=== PATIENT | female | born 1995 | race Caucasian/White ===

== ENCOUNTER 2020-02-01 20:20 | Observation (INO) | payer MEDICAID, SELFPAY ==
--- NOTE | 2020-02-01 | SCC_ITS ---
Procedure Done: Irrigation and debridement with laceration repair right lower extremity 6 seconds of fluoroscopic guidance, for a cumulative dose of 0.1 mGy, was provided to Dr. Ortez by the radiology department. C-arm images of the RIGHT were saved for the patient's permanent record. HILDA
[2020-02-01 20:24] VITALS: BP 179/115; PULSE 70; RESP 16; TEMP 36.7; O2SAT 99; BMI 18.3
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
[2020-02-01 20:36] VITALS: PULSE 70
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
[2020-02-01] MEDS: ondansetron 2 mg/ML SDV 2 mL 4 MG IVP (20:53)
[2020-02-01] MEDS: lactated ringers 1,000 ML 999 ML IV (20:53)
[2020-02-01 20:54] VITALS: RESP 18; O2SAT 99
[2020-02-01] MEDS: HYDROmorphone 1 mg/mL INJ 1 mL 0.5 MG IVP (20:54)
[2020-02-01 20:57] VITALS: BP 148/92; PULSE 67; RESP 18; O2SAT 99
[2020-02-01 21:25] LABS: Basophils % 0.2 %; Eosinophils % 0.1 %; Hematocrit 36.2 % (37.0-47.0); Hemoglobin 10.5 g/dL (11.5-15.3); Lymphocytes # 1.9 10^3/uL (0.8-4.8); Lymphocytes % 19.4 %; Mean Corpuscular Hemoglobin 24.2 pg (28.0-34.0); Mean Corpuscular Volume 83.4 fL (81-99); Mean Platelet Volume 10.8 fL (7.4-10.4); Monocytes # 0.6 10^3/uL (0.2-0.9); Monocytes % 6.1 %; Neutrophils # 7.1 10^3/uL (1.8-7.7); Nucleated Red Blood Cells % 0 %; Platelet Count 228 10^3/cmm (130-400); Red Blood Count 4.34 10^6/uL (4.1-5.3); Red Cell Distribution Width 17.3 % (12.1-15.1); White Blood Count 9.6 10^3/uL (4.0-10.0)
[2020-02-01 21:40] LABS: Alanine Aminotransferase 15 U/L (0-33); Albumin Level 3.8 g/dL (3.5-5.2); Alkaline Phosphatase 45 IU/L (35-105); Anion Gap 15.9 (5-19); Aspartate Amino Transferase 19 U/L (0-32); Blood Urea Nitrogen 8 mg/dL (6-20); Calcium 8.9 mg/dL (8.5-10.5); Carbon Dioxide 20 mmol/L (22-29); Chloride 111 mmol/L (98-107); Globulin 2.4 g/dL (1.3-4.6); Glomerular Filtration Rate 102.8 mL/min (90-130); Glucose 85 mg/dL (65-115); Osmolality Calculated 291 mOsm/kg (285-295); Potassium 3.9 mmol/L (3.5-5.1); Sodium 143 mmol/L (136-145); Total Bilirubin 0.2 mg/dL (0.15-1.2); Total Protein 6.2 g/dL (6.6-8.7)
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
--- NOTE | 2020-02-01 22:01 | P.HPUD_ITS ---
Surgery/Procedure H&P Update DATE OF PROCEDURE: February 01, 2020 DATE H&P PERFORMED: 02/01/20 H&P UPDATE INFORMATION: I have reviewed H&P completed within last 30 days, I have examined patient prior to procedure, No changes to prior documentation and H&P is in [facility] EMR on date indicated PLANNED PROCEDURE: Operation Date: 02/01/20 21:55 Proposed Procedures p Debridement(Right) - Luther Ortez DPM
[2020-02-01 22:13] LABS: HCG, Serum Qual Negative (Negative)
[2020-02-01 22:21] LABS: INR 1.18 (0.8-1.2)
[2020-02-01 22:23] LABS: Partial Thromboplastin Time 26.9 SECONDS (23.9-36.7)
--- NOTE | 2020-02-01 22:34 | ANES.PREANE2 ---
Pre-Anesthetic Assessment Pre-Anesthetic Assessment: Height/Weight: Height 1.65 m Weight 49.895 kg Temp Pulse Resp BP Pulse Ox 98.0 F 67 18 148/92 99 02/01/20 20:24 02/01/20 20:57 02/01/20 20:57 02/01/20 20:57 02/01/20 20:57 Proposed Procedure: Operation Date: 02/01/20 21:55 Proposed Procedures p Debridement(Right) - Luther Ortez, DPM Was Beta Jose taken within 24 hours: N/A Last Intake: 12:00 Exam: Pre-Anes Outpt Exam: alert, oriented x 3, clear to auscultation bilaterally and regular rate & rhythm Airway: Submandibular: WNL Cervical ROM: WNL MP: 2 Dentition: Full History/ROS: No significant history except as noted and No significant complaints Pulmonary: Pulmonary: None reported CV/HEM: CV/HEM: None reported : : None reported Hepatic: Hepatic: None reported GI: GI: None reported Metabolic: Metabolic: None reported Musc/skel: Musc/skel: None reported Neuropsych: Neuropsych: None reported Anesthetic Plan: ASA status: 2E Anesthesia: Anesthesia Evaluation and General Risk of > 500 ml blood loss (7ml/kg in children): No PFSH Anesthesia PFSH: Medical History No pertinent past medical history Surgical History No history of previous surgery Social History Smoking and tobacco status: current every day smoker Data Anesthesia CBC & Chem 7: 02/01/20 21:20 02/01/20 21:20 Other Labs: Laboratory Results - last 48 hr 02/01/20 02/01/20 02/01/20 21:20 21:20 21:20 WBC 9.6 RBC 4.34 Hgb 10.5 L Hct 36.2 L MCV 83.4 MCH 24.2 L MCHC 29.0 L RDW 17.3 H Plt Count 228 MPV 10.8 H Neut % (Auto) 74.0 Lymph % (Auto) 19.4 [place] % (Auto) 6.1 Eos % (Auto) 0.1 Baso % (Auto) 0.2 Neut # (Auto) 7.1 Lymph # (Auto) 1.9 [place] # (Auto) 0.6 Eos # (Auto) 0.0 Baso # (Auto) 0.0 Nucleated RBC % (auto) 0 Nucleated RBCs # 0.0 PT 15.40 H INR 1.18 APTT 26.9 Sodium 143 Potassium 3.9 Chloride 111 H Carbon Dioxide 20 L Anion Gap 15.9 BUN 8 Creatinine 0.7 GFR Calculation 102.8 Glucose 85 Calculated Osmolality 291 Calcium 8.9 Total Bilirubin 0.2 AST 19 ALT 15 Alkaline Phosphatase 45 Total Protein 6.2 L Albumin 3.8 Globulin 2.4 HCG, Qual 02/01/20 21:20 WBC RBC Hgb Hct MCV MCH MCHC RDW Plt Count MPV Neut % (Auto) Lymph % (Auto) [place] % (Auto) Eos % (Auto) Baso % (Auto) Neut # (Auto) Lymph # (Auto) [place] # (Auto) Eos # (Auto) Baso # (Auto) Nucleated RBC % (auto) Nucleated RBCs # PT INR APTT Sodium Potassium Chloride Carbon Dioxide Anion Gap BUN Creatinine GFR Calculation Glucose Calculated Osmolality Calcium Total Bilirubin AST ALT Alkaline Phosphatase Total Protein Albumin Globulin HCG, Qual Negative Cardiac Studies: No Data to Display
--- NOTE | 2020-02-01 22:40 | SUR.OPER ---
BLUISH RED RAISED SWELLING NOTED AT RIGHT CHECK. NO BLEEDING OR SKIN BREAKDOWN
[2020-02-01 23:07] VITALS: PULSE 88; RESP 18; O2SAT 98
[2020-02-01] MEDS: lidocaine 1% INJ 20 mL SUBCUT (23:25)
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
[2020-02-01 23:57] VITALS: BP 138/92; PULSE 99; RESP 20; TEMP 36.7; O2SAT 100
[2020-02-02 00:02] VITALS: PULSE 100; RESP 17; O2SAT 96
[2020-02-02 00:05] VITALS: BP 131/88; PULSE 99; RESP 17; O2SAT 99
[2020-02-02 00:10] VITALS: BP 135/87; PULSE 92; RESP 20; TEMP 36.7; O2SAT 96
[2020-02-02 00:20] VITALS: BP 136/80; PULSE 108; RESP 20; TEMP 36.9; O2SAT 94
--- NOTE | 2020-02-02 00:20 | PC.NURSE ---
Pt. to floor from OR with nurse New. Pt. is requesting to use a cell phone to call her family to come and get her. OR nurse New allowed patient to use personal cell phone to contact her family. Pt. was able to contact her mother about coming to get her. Pt. 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 Patient had stated that If my family doesn't come to get me I'll be leaving anyway even if I have to walk . Patient is aware that she is non-weight bearing to her operative leg. Patient states that she wants to go home because she wants to be with her children and has anxiety about staying. Surgeon had attempted to contact family prior to patient coming to the floor to pick her up but was unable to reach them. Dr. Britton to floor at 0045 and seen patient, is aware that family is coming to get her. Physician states that he will not be admitting patient then and that he will write her prescriptions for discharge. Will provide patient with Dr. Ortez's office number to set up any followup appointments.
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
--- NOTE | 2020-02-02 01:10 | PM.EVENT ---
Event Note Event Note: Dr. Ortez asked me to admit the patient in case no one comes from her home to pick her up. He tried to call her family but no one was answering the call. Finally around 1:30 AM her mother called us back. She will be taking her home tonight I would not admit the patient to our hospitalist service No H&P done Dr. Ortez has left the hospital, I will give her Bactrim 2-week course and opioid for 2 to 3 days Please note hospital service was not involved in care of this patient There was no physician patient interaction from hospitalist group Dr. Ortez will be doing operative and discharge notes
--- NOTE | 2020-02-02 02:00 | PC.NURSE ---
Pt. mother here to take patient home. Pt. assisted to private vehicle via wheelchair by this nurse. Pt. given written prescriptions from Dr. Britton. Pt. understands to take prescriptions to pharmacy in the AM. Patient provided crutches from ER. Teaching to patient regarding boot, to not loosen or remove boot. Keep foot elevated when possible, non-weightbearing status. Pt. voices understanding. Pt. given number to Dr. Ortez's office to call in the AM to set up follow-up appointments. Pt. mother also provided above information and voices understanding along with patient herself. IV removed by Susana Hernandez LPN prior to patient leaving the floor. 2x2 gauze and coban in place. Pt. ID bracelet and allergy band removed. Pt. has all personal belongings and prescriptions with her at time of departure.
[2020-02-02 02:22] VITALS: BP 136/80; PULSE 108; RESP 20; TEMP 36.9; O2SAT 94
== END 2020-02-02 02:10 | disposition home or self-care (01) ==
LOC: ER 21:23 → OR 22:12 → MEDSURG 23:54
PROVIDERS: Emergency Medicine; Admitting Provider Internal Medicine; Visit Provider Podiatrist Foot & Ankle Surgery
PROC: (CPT 20103; principal; 2020-02-01 21:55)
DX: S91.311A Laceration without foreign body, right foot, initial encounter (principal); S97.01XA Crushing injury of right ankle, initial encounter; S97.81XA Crushing injury of right foot, initial encounter; W23.0XXA Caught, crushed, jammed, or pinched between moving objects, initial encounter
CPT/HCPCS: 20103; 12345; 73590; 73610; 73630; 76000; 80053; 84703; 85025; 85610; 85730; 96365; 96366; 96368; 96375; 99282; 99285; G0378; J0690; J1100; J1170; J1885; J2001; J2405; J2704; J3010; J3490

== ENCOUNTER → 2020-02-14 15:46 | Outpatient (BNVA) | payer MEDICAID, SELFPAY | PROVIDERS: Visit Provider Podiatrist Foot & Ankle Surgery | DX: S97.01XA Crushing injury of right ankle, initial encounter (principal); S97.81XA Crushing injury of right foot, initial encounter; X58.XXXA Exposure to other specified factors, initial encounter | CPT/HCPCS: 73610 ==

== ENCOUNTER 2020-02-26 16:40 | Outpatient (CLI) | payer MEDICAID, SELFPAY | END 2020-02-26 16:41 | disposition home or self-care (01) | LOC: SPT 16:41 | PROVIDERS: Visit Provider Podiatrist Foot & Ankle Surgery | DX: Z46.89 Encounter for fitting and adjustment of other specified devices (principal); Z98.890 Other specified postprocedural states | CPT/HCPCS: 97760; L4361 ==

== ENCOUNTER 2020-02-28 18:41 | Emergency (ER) | payer MEDICAID, SELFPAY ==
[2020-02-28 18:50] VITALS: BP 152/82; PULSE 44; RESP 16; TEMP 36.6; O2SAT 99; BMI 18.3
--- NOTE | 2020-02-28 19:31 | ED_ITS ---
HPI - Abdominal Pain General: Chief Complaint: Abdominal Pain Stated Complaint: abd pain Time Seen by Provider: 02/28/20 19:26 Source: patient Mode of arrival: ambulatory Limitations: no limitations History of Present Illness: HPI narrative: 24-year-old female who states she has been on antibiotics for last 3 to 4 days and has been having abdominal pain when she takes her antibiotics. States pain is epigastric in nature. She denies any worsening or improving factors. She has had some nausea and vomiting as well. MD elicited complaint: abdominal pain Onset (ago): hour(s) Associated Symptoms: Denies chills, dysuria and fever(s) Review of Systems Const: Denies: fever(s), chills, body aches or change in appetite Eyes: Denies: blurry vision or eye discomfort ENMT: Denies: throat pain or dental pain Card: Denies: chest pain Resp: Denies: dyspnea GI: Reports: abdominal pain : Denies: dysuria Musc: Denies: neck pain or back pain Skin/Breast: Denies: rash Neuro: Denies: headache(s) Psych: Denies: depression Levon/Lymph: Denies: easy bruising All/Imm: Denies: urticaria PFSH ED PFSH: Medical History (Updated 02/28/20 @ 20:36 by Amado Harris MD) No pertinent past medical history Surgical History No history of previous surgery Family History Denies family history of Hyperlipidemia Hypertension Social History Smoking and tobacco status: current every day smoker Alcohol intake: never Household members: spouse Housing: House Physical Exam Const: COMMON NORMALS: no acute distress, patient oriented x3 and healthy appearing HENMT: COMMON NORMALS: normocephalic and atraumatic HEAD & SCALP: normocephalic and atraumatic Eye: COMMON NORMALS: Equal, round and reactive pupils present and EOMs intact bilaterally PUPIL: Yes Equal, round and reactive pupils present Neck/C-Spine: COMMON NORMALS: full ROM and supple Chest: COMMONS NORMALS: normal inspection of the chest and normal palpation of entire chest wall Resp: COMMON NORMALS: normal respiratory effort, No retractions, No use of accessory muscles and clear to auscultation bilaterally AUSCULTATION: clear to auscultation bilaterally Cardio: COMMON NORMALS: regular rate, regular rhythm and No murmurs present (Cardio) RATE: regular rate RHYTHM: regular rhythm GI: COMMON NORMALS: Normal to inspection, nondistended, normoactive bowel sounds present, Soft to palpation, non-tender and no masses PALPATION: Yes Soft to palpation Extremity: COMMON NORMALS: normal to inspection and full ROM Neuro: COMMON NORMALS: patient oriented x3, moves all extremities and no focal motor deficits Psych: COMMON NORMALS: mental status grossly normal, Normal thought process present and cooperative THOUGHT PROCESS: Normal thought process present Skin: COMMON NORMALS: no rashes or lesions noted and no wounds GENERAL SKIN EXAM: no rashes or lesions noted Course Vital Signs: Vital signs: Vital Signs Temperature 97.7 F 02/28/20 21:16 Pulse Rate 42 L 02/28/20 21:16 Respiratory Rate 12 02/28/20 21:16 Blood Pressure 135/74 02/28/20 21:16 Pulse Oximetry 100 02/28/20 21:16 MDM - Abdominal Pain MDM Narrative: Medical decision making narrative: Janel presents with abdominal pain is likely from antibiotics causing gastritis. Patient is well- appearing here abdominal exam is benign. Her lab work here is normal as well and has no signs of cholecystitis. Patient feels improved after Zofran and will prescribe her Zofran for home. Did inform her she needs to return if her pain returns. She understands and agrees to plan. Lab Data: Labs: Lab Results 02/28/20 02/28/20 02/28/20 Range/Units 19:30 19:30 19:30 WBC 6.2 (4.0-10.0) 10^3/ uL RBC 4.97 (4.1-5.3) 10^6/u L Hgb 11.8 (11.5-15.3) g/dL Hct 39.7 (37.0-47.0) % MCV 79.9 L (81-99) fL MCH 23.7 L (28.0-34.0) pg MCHC 29.7 L (30.0-36.0) g/dL RDW 16.3 H (12.1-15.1) % Plt Count 271 (130-400) 10^3/c mm MPV 10.6 H (7.4-10.4) fL Neut % (Auto) 83.4 % Lymph % (Auto) 13.6 % Cross % (Auto) 2.3 % Eos % (Auto) 0.0 % Baso % (Auto) 0.5 % Neut # (Auto) 5.2 (1.8-7.7) 10^3/u L Lymph # (Auto) 0.8 (0.8-4.8) 10^3/u L Cross # (Auto) 0.1 L (0.2-0.9) 10^3/u L Eos # (Auto) 0.0 (0.0-0.8) 10^3/u L Baso # (Auto) 0.0 (0.0-0.1) 10^3/u L Nucleated RBC % (a uto) 0 % Nucleated RBCs # 0.0 /100WBC Sodium 138 (136-145) mmol/L Potassium 4.2 (3.5-5.1) mmol/L Chloride 104 (98-107) mmol/L Carbon Dioxide 20 L (22-29) mmol/L Anion Gap 18.2 (5-19) BUN 19 (6-20) mg/dL Creatinine 0.6 (0.5-0.9) mg/dL GFR Calculation 122.8 (90-130) mL/min Glucose 149 H (65-115) mg/dL Calculated Osmolal ity 285 (285-295) mOsm/k g Calcium 10.2 (8.5-10.5) mg/dL Magnesium 1.9 (1.7-2.3) mg/dL Total Bilirubin 0.4 (0.15-1.2) mg/dL AST 21 (0-32) U/L ALT 24 (0-33) U/L Alkaline Phosphata se 51 (35-105) IU/L Total Protein 7.3 (6.6-8.7) g/dL Albumin 4.9 (3.5-5.2) g/dL Globulin 2.4 (1.3-4.6) g/dL Lipase 23 (13-60) U/L HCG, Qual Negative (Negative) Discharge Plan Discharge Patient Disposition: Home, Self-Care Clinical Impression: Abdominal pain Qualifiers: Abdominal location: generalized Qualified Code(s): R10.84 - Generalized abdominal pain Condition: Stable Prescriptions: New ondansetron 4 mg tablet,disintegrating 4 mg PO Q6H PRN (Reason: nausea and vomiting) Qty: 14 RF: 0 No Action doxycycline hyclate 100 mg capsule 100 mg PO BID 10 Days Qty: 20 RF: 0 (DME) cam boot See Rx Instructions .Route .MEDSUPPLY Qty: 1 RF: 0 hydrocodone-acetaminophen [[place]] 5-325 mg tablet 1 tab PO Q4H PRN (Reason: pain) 7 Days Qty: 42 RF: 0 medroxyprogesterone 150 mg/mL syringe See Rx Instructions .ROUTE .COMPLEX RF: 0 Discharge Orders: Discharge Order (Routine); Ordered 02/28/20 Ordered By: Amado Harris Discharge Diet: Advance as tolerated Discharge Activity: Resume usual activity Patient Instructions: Abdominal Pain (ED) Discharge Date/Time: 02/28/20 21:18 Coding Level of Care Code ED Compressor Station Engineer Chief for Chg Fwd Exam Comprehensive
[2020-02-28 19:41] LABS: Basophils % 0.5 %; Hematocrit 39.7 % (37.0-47.0); Hemoglobin 11.8 g/dL (11.5-15.3); Lymphocytes # 0.8 10^3/uL (0.8-4.8); Lymphocytes % 13.6 %; Mean Corpuscular HGB Conc 29.7 g/dL (30.0-36.0); Mean Corpuscular Hemoglobin 23.7 pg (28.0-34.0); Mean Corpuscular Volume 79.9 fL (81-99); Mean Platelet Volume 10.6 fL (7.4-10.4); Monocytes # 0.1 10^3/uL (0.2-0.9); Monocytes % 2.3 %; Neutrophils # 5.2 10^3/uL (1.8-7.7); Neutrophils % 83.4 %; Nucleated Red Blood Cells % 0 %; Platelet Count 271 10^3/cmm (130-400); Red Blood Count 4.97 10^6/uL (4.1-5.3); Red Cell Distribution Width 16.3 % (12.1-15.1); White Blood Count 6.2 10^3/uL (4.0-10.0)
[2020-02-28 19:52] LABS: Alanine Aminotransferase 24 U/L (0-33); Albumin Level 4.9 g/dL (3.5-5.2); Alkaline Phosphatase 51 IU/L (35-105); Anion Gap 18.2 (5-19); Aspartate Amino Transferase 21 U/L (0-32); Blood Urea Nitrogen 19 mg/dL (6-20); Calcium 10.2 mg/dL (8.5-10.5); Carbon Dioxide 20 mmol/L (22-29); Chloride 104 mmol/L (98-107); Globulin 2.4 g/dL (1.3-4.6); Glomerular Filtration Rate 122.8 mL/min (90-130); Glucose 149 mg/dL (65-115); Lipase 23 U/L (13-60); Magnesium 1.9 mg/dL (1.7-2.3); Osmolality Calculated 285 mOsm/kg (285-295); Potassium 4.2 mmol/L (3.5-5.1); Sodium 138 mmol/L (136-145); Total Bilirubin 0.4 mg/dL (0.15-1.2); Total Protein 7.3 g/dL (6.6-8.7)
[2020-02-28 19:54] LABS: HCG, Serum Qual Negative (Negative)
[2020-02-28] MEDS: ondansetron 2 mg/ML SDV 2 mL 4 MG IVP (20:11)
[2020-02-28 20:12] VITALS: RESP 18; O2SAT 100
[2020-02-28] MEDS: morphine 4 mg/mL SDV 1 mL IVP (20:12)
[2020-02-28] MEDS: sodium chloride 0.9% 1,000 ML 999 ML IV (20:12)
[2020-02-28 20:16] VITALS: BP 152/77; PULSE 49; RESP 18; O2SAT 100
[2020-02-28] MEDS: diphenhydrAMINE 50 mg/mL SDV 1mL 25 MG IVP (20:59)
[2020-02-28] MEDS: metoclopramide 5 mg/mL SDV 2 mL IVP (21:00)
[2020-02-28 21:16] VITALS: BP 135/74; PULSE 42; RESP 12; TEMP 36.5; O2SAT 100
== END 2020-02-28 21:18 | disposition home or self-care (01) ==
PROVIDERS: Emergency Medicine; Emergency Provider Emergency Medicine
DX: R10.84 Generalized abdominal pain (principal); F17.210 Nicotine dependence, cigarettes, uncomplicated
CPT/HCPCS: 12345; 36415; 80053; 83690; 83735; 84703; 85025; 96361; 96374; 96375; 99283; J1200; J2270; J2405; J2765; J7030

== ENCOUNTER 2020-03-20 14:52 | Outpatient (CLI) | payer MEDICAID, SELFPAY | END 2020-03-20 14:53 | disposition home or self-care (01) | LOC: WOUND 14:56 | PROVIDERS: Visit Provider Thoracic Surgery (Cardiothoracic Vascular Surgery) | DX: T81.89XA Other complications of procedures, not elsewhere classified, initial encounter (principal) | CPT/HCPCS: 11042; G0463 ==

== ENCOUNTER 2020-03-27 13:34 | Outpatient (CLI) | payer MEDICAID, SELFPAY | END 2020-03-27 13:35 | disposition home or self-care (01) | LOC: WOUND 13:35 | PROVIDERS: Visit Provider Emergency Medicine | DX: T81.89XA Other complications of procedures, not elsewhere classified, initial encounter (principal) | CPT/HCPCS: 11042 ==

== ENCOUNTER 2020-04-03 14:18 | Outpatient (CLI) | payer MEDICAID, SELFPAY | END 2020-04-03 14:19 | disposition home or self-care (01) | LOC: WOUND 14:19 | PROVIDERS: Visit Provider Emergency Medicine | DX: T81.89XA Other complications of procedures, not elsewhere classified, initial encounter (principal) | CPT/HCPCS: 11042 ==

== ENCOUNTER 2020-04-10 14:24 | Outpatient (CLI) | payer MEDICAID, SELFPAY | END 2020-04-10 14:25 | disposition home or self-care (01) | LOC: WOUND 14:26 | PROVIDERS: Visit Provider Nurse Practitioner Family | DX: T81.89XA Other complications of procedures, not elsewhere classified, initial encounter (principal) | CPT/HCPCS: 11042 ==

== ENCOUNTER 2020-04-17 15:12 | Outpatient (CLI) | payer MEDICAID, SELFPAY | END 2020-04-17 15:13 | disposition home or self-care (01) | LOC: WOUND 15:12 | PROVIDERS: Visit Provider Thoracic Surgery (Cardiothoracic Vascular Surgery) | DX: T81.89XA Other complications of procedures, not elsewhere classified, initial encounter (principal) | CPT/HCPCS: 11042 ==

== ENCOUNTER 2020-04-24 14:31 | Outpatient (CLI) | payer MEDICAID, SELFPAY | END 2020-04-24 14:32 | disposition home or self-care (01) | LOC: WOUND 14:32 | PROVIDERS: Visit Provider Nurse Practitioner Family | DX: Z09 Encounter for follow-up examination after completed treatment for conditions other than malignant neoplasm (principal) | CPT/HCPCS: 99212 ==

== ENCOUNTER → 2020-05-07 15:57 | Outpatient (BNVA) | payer MEDICAID, SELFPAY | PROVIDERS: Visit Provider Podiatrist Foot & Ankle Surgery | DX: S97.01XD Crushing injury of right ankle, subsequent encounter (principal); S97.81XD Crushing injury of right foot, subsequent encounter; X58.XXXD Exposure to other specified factors, subsequent encounter | CPT/HCPCS: 73630 ==

== ENCOUNTER → 2020-06-10 15:22 | Outpatient (BNVA) | payer MEDICAID, SELFPAY | PROVIDERS: Visit Provider Nurse Practitioner Family | DX: M54.9 Dorsalgia, unspecified (principal); G89.29 Other chronic pain; F41.9 Anxiety disorder, unspecified | CPT/HCPCS: 85025 ==

== ENCOUNTER 2020-06-19 15:37 | Outpatient (CLI) | payer MEDICAID, SELFPAY ==
--- NOTE | 2020-06-19 15:45 | XR_ITS ---
WS: [id number] THORACIC SPINE TECHNIQUE: 3 views of the thoracic spine CLINICAL INFORMATION: chronic back pain COMPARISON: None. FINDINGS: Thoracic scoliosis convex right. Scoliosis measures 18 degrees. Disc space heights and vertebral bod y heights well-preserved. No acute appearing compression fractures. XR/XR thoracic spine 3V* [id number] IMPRESSION: Thoracic scoliosis convex right measuring 18 degrees
--- NOTE | 2020-06-19 15:45 | XR_ITS ---
WS: [id number] LUMBAR SPINE TECHNIQUE: 3 views of the lumbar spine CLINICAL INFORMATION: chronic back pain COMPARISON: None. FINDINGS: 5 nonrib-bearing lumbar vertebral bodies. Mild lumbar curve convex left. Trace retrolisthesis L2 on L 3 and L3 on L4 measuring 3 to 4 mm. No visualized pars defects. Disc space heights and vertebral body heights are well preserved. Mild disc space narrowing L3-4 XR/XR lumbar spine 2-3V* [id number] IMPRESSION: 1. Mild lumbar curve convex left. 2. 34 mm retrolisthesis L2 on L3 and L3 on L4. 3. Mild disc space narrowing L3-4. 4. No visualized pars defects.
== END 2020-06-19 15:38 | disposition home or self-care (01) ==
LOC: RADWPI 15:40
PROVIDERS: PCP Nurse Practitioner Family; Visit Provider Nurse Practitioner Family
DX: M54.5 Low back pain (principal); M54.6 Pain in thoracic spine; G89.29 Other chronic pain
CPT/HCPCS: 72072; 72100

== ENCOUNTER → 2020-07-04 13:02 | Outpatient (BNVA) | payer MEDICAID, SELFPAY | PROVIDERS: PCP Nurse Practitioner Family; Visit Provider Psychiatry & Neurology Psychiatry | DX: F41.9 Anxiety disorder, unspecified (principal); F12.10 Cannabis abuse, uncomplicated; F10.10 Alcohol abuse, uncomplicated; F15.21 Other stimulant dependence, in remission | CPT/HCPCS: 90792 ==

== ENCOUNTER 2020-07-09 12:05 | Emergency (ER) | payer MEDICAID, SELFPAY ==
[2020-07-09 12:08] VITALS: BP 179/110; PULSE 60; RESP 16; O2SAT 99; BMI 18.3
--- NOTE | 2020-07-09 12:43 | XR_ITS ---
WS: [id number] Portable AP upright chest, 07/09/2020 Clinical Data: dyspnea/cough Comparison: Portable chest, 09/22/2017. Findings: No nodules, masses or effusions are seen. The heart is normal. The pulmonary vascularity is not increased. No pneumonia or pneumothorax is seen. There is a soft tissue density overlying the ri ght seventh interspace which is probably the patient's right areola. There is a dextroscoliosis of th e midthoracic spine. The patient has lost weight since the prior examination. XR/XR chest 1V portable [id number] Impression: Negative chest.
--- NOTE | 2020-07-09 12:45 | ED_ITS ---
HPI - Abdominal Pain General: Chief Complaint: Abdominal Pain Stated Complaint: abd pain,nausea and vomiting Time Seen by Provider: 07/09/20 12:06 History of Present Illness: HPI narrative: 25-year-old female comes in complaining of nausea vomiting abdominal pain she said dysuria as well. She states it began after she drank some apple cider vinegar to clear a sinus infection. She had some pain and burning and dysuria with as well. MD elicited complaint: abdominal pain Pertinent past history: past UTI Onset (ago): day(s) (1) Pain Consistency: constant Location: Epigastric, L flank and R flank Severity: moderate Quality: cramping Radiation: none Migration to: L flank and R flank Exacerbating factors: eating Relieving factors: nothing Associated Symptoms: Reports anorexia, bloating, GI cramping, dysuria, nausea and vomiting; Denies belching, change in bowel habits, change in stool character, chills, coffee ground emesis, constipation, diarrhea, dyspepsia, excessive flatus, fever(s), heartburn, hematochezia, hematuria, hematemesis, fecal incontinence, loose stools, melena and poor appetite Treatments prior to arrival: NSAIDs Review of Systems Const: Denies: fever(s) or chills ENMT: Denies: throat pain, ear or mastoid pain, nasal discharge or nasal congestion Card: Denies: chest pain, edema, dyspnea on exertion or orthopnea Resp: Denies: dyspnea, productive cough or non-productive cough GI: Reports: nausea, vomiting, bloating and GI cramping; Denies: hematemesis, coffee ground emesis, heartburn, diarrhea, constipation, belching, excessive flatus, fecal incontinence, change in bowel habits, change in stool character, hematochezia or melena : Reports: dysuria; Denies: hematuria Skin/Breast: Denies: rash or pruritus PFSH ED PFSH: Medical History Alcohol abuse Anxiety Cannabis abuse Chronic back pain greater than 3 months duration Methamphetamine dependence in remission No pertinent past medical history Thoracic scoliosis Surgical History No history of previous surgery Family History Denies family history of Hyperlipidemia Hypertension Social History Smoking and tobacco status: current every day smoker Second hand smoke exposure: Yes Alcohol intake: never Desire information about alcohol rehabilitation?: No Counseling given: No Desire information about substance/drug rehabilitation?: No Counseling given: No Adopted: No Caregiver/support person: No Lives independently: Yes Household members: spouse Housing: House Marital status: Single Number of children: 3 Highest education level completed: GED or Equivalent Current gender identity: Female Physical Exam Const: COMMON NORMALS: no acute distress GENERAL APPEARANCE: cooperative and comfortable ORIENTATION/CONSCIOUSNESS: Yes awake, Yes oriented to person, Yes oriented to place and Yes oriented to time HENMT: COMMON NORMALS: normocephalic, atraumatic and hearing grossly normal bilaterally HEAD & SCALP: normocephalic and atraumatic Neck/C-Spine: COMMON NORMALS: no JVD Resp: COMMON NORMALS: normal respiratory effort, No retractions, No use of accessory muscles and clear to auscultation bilaterally AUSCULTATION: clear to auscultation bilaterally Cardio: COMMON NORMALS: no JVD, regular rate, regular rhythm and No murmurs present (Cardio) RATE: regular rate RHYTHM: regular rhythm GI: COMMON NORMALS: Soft to palpation and No hepatosplenomegaly present AUSCULTATION: Yes normoactive bowel sounds PALPATION: Yes Soft to palpation, Yes Tenderness to palpation present (GI) (Epigastric), No Guarding due to palpation present (GI) and Yes No hepatosplenomegaly present : BLADDER/KIDNEY EXAM: Yes CVA tenderness (Mild) Back/Pelvis: GENERAL BACK: Yes CVA tenderness (Mild) CVA tenderness: bilateral Extremity: COMMON NORMALS: normal to inspection, capillary refill normal, no clubbing, cyanosis or edema, no calf tenderness and no pedal edema Neuro: SENSORIUM/ORIENTATION: Yes oriented to person, Yes oriented to place and Yes oriented to time Skin: COMMON NORMALS: no rashes or lesions noted GENERAL SKIN EXAM: no rashes or lesions noted Course Vital Signs: Vital signs: Vital Signs Pulse Rate 75 07/09/20 15:53 Respiratory Rate 14 07/09/20 15:53 Blood Pressure 120/78 07/09/20 15:53 Pulse Oximetry 99 07/09/20 15:53 MDM - Abdominal Pain MDM Narrative: Medical decision making narrative: Suspect she does have a pyelonephritis albeit somewhat mild her white count is normal we will go ahead and treat her here started on Cipro and gave her antiemetics as well. Lab Data: Labs: Lab Results 07/09/20 07/09/20 07/09/20 Range/Units 12:17 13:57 13:57 WBC (4.0-10.0) 10^3/ uL RBC (4.1-5.3) 10^6/u L Hgb (11.5-15.3) g/dL Hct (37.0-47.0) % MCV (81-99) fL MCH (28.0-34.0) pg MCHC (30.0-36.0) g/dL RDW (12.1-15.1) % Plt Count (130-400) 10^3/c mm MPV (7.4-10.4) fL Neut % (Auto) % Lymph % (Auto) % [place] % (Auto) % Eos % (Auto) % Baso % (Auto) % Neut # (Auto) (1.8-7.7) 10^3/u L Lymph # (Auto) (0.8-4.8) 10^3/u L [place] # (Auto) (0.2-0.9) 10^3/u L Eos # (Auto) (0.0-0.8) 10^3/u L Baso # (Auto) (0.0-0.1) 10^3/u L Nucleated RBC % (a uto) % Nucleated RBCs # /100WBC Sodium 135 L (136-145) mmol/L Potassium 4.0 (3.5-5.1) mmol/L Chloride 104 (98-107) mmol/L Carbon Dioxide 23 (22-29) mmol/L Anion Gap 12.0 (5-19) BUN 10 (6-20) mg/dL Creatinine 0.6 (0.5-0.9) mg/dL GFR Calculation 121.8 (90-130) mL/min Glucose 135 H (65-115) mg/dL Calculated Osmolal ity 281 L (285-295) mOsm/k g Lactic Acid 0.8 (0.5-2.2) mmol/L Calcium 8.3 L (8.5-10.5) mg/dL Total Bilirubin 0.6 (0.15-1.2) mg/dL AST 23 (0-32) U/L ALT 19 (0-33) U/L Alkaline Phosphata se 59 (35-105) IU/L Total Protein 5.9 L (6.6-8.7) g/dL Albumin 3.6 (3.5-5.2) g/dL Globulin 2.3 (1.3-4.6) g/dL Urine Color Yellow (Yellow) Urine Appearance Turbid (CLEAR) Urine pH 9 H (5-7) Ur Specific Gravit y 1.015 (1.005-1.030) Urine Protein Neg (Negative) Urine Glucose (UA) Norm (Normal) Urine Ketones 2+ H (Negative) Urine Blood 2+ H (Negative) Urine Nitrate Negative (Negative) Urine Bilirubin Neg (Negative) Prot Sulfosalicyli c Acd Negative (Negative) Urine Urobilinogen Norm (Negative) mg/dL Ur Leukocyte Dawna ase 1+ H (Negative) Urine RBC 0-4 H (0-2) /hpf Urine WBC 5-10 H (0-5) /hpf Ur Squamous Epith Cells 0-4 H (0-5) /hpf Amorphous Sediment 4+ /hpf Urine Bacteria 1+ H (NONE) /hpf Urine Mucus 3+ /hpf 11/03/20 Range/Units 14:00 WBC 7.1 (4.0-10.0) 10^3/ uL RBC 4.16 (4.1-5.3) 10^6/u L Hgb 10.8 L (11.5-15.3) g/dL Hct 35.1 L (37.0-47.0) % MCV 84.4 (81-99) fL MCH 26.0 L (28.0-34.0) pg MCHC 30.8 (30.0-36.0) g/dL RDW 15.9 H (12.1-15.1) % Plt Count 228 (130-400) 10^3/c mm MPV 10.2 (7.4-10.4) fL Neut % (Auto) 87.9 % Lymph % (Auto) 7.9 % [place] % (Auto) 3.5 % Eos % (Auto) 0.0 % Baso % (Auto) 0.3 % Neut # (Auto) 6.22 (1.8-7.7) 10^3/u L Lymph # (Auto) 0.6 L (0.8-4.8) 10^3/u L [place] # (Auto) 0.3 (0.2-0.9) 10^3/u L Eos # (Auto) 0.0 (0.0-0.8) 10^3/u L Baso # (Auto) 0.0 (0.0-0.1) 10^3/u L Nucleated RBC % (a uto) 0 % Nucleated RBCs # 0.0 /100WBC Sodium (136-145) mmol/L Potassium (3.5-5.1) mmol/L Chloride (98-107) mmol/L Carbon Dioxide (22-29) mmol/L Anion Gap (5-19) BUN (6-20) mg/dL Creatinine (0.5-0.9) mg/dL GFR Calculation (90-130) mL/min Glucose (65-115) mg/dL Calculated Osmolal ity (285-295) mOsm/k g Lactic Acid (0.5-2.2) mmol/L Calcium (8.5-10.5) mg/dL Total Bilirubin (0.15-1.2) mg/dL AST (0-32) U/L ALT (0-33) U/L Alkaline Phosphata se (35-105) IU/L Total Protein (6.6-8.7) g/dL Albumin (3.5-5.2) g/dL Globulin (1.3-4.6) g/dL Urine Color (Yellow) Urine Appearance (CLEAR) Urine pH (5-7) Ur Specific Gravit y (1.005-1.030) Urine Protein (Negative) Urine Glucose (UA) (Normal) Urine Ketones (Negative) Urine Blood (Negative) Urine Nitrate (Negative) Urine Bilirubin (Negative) Prot Sulfosalicyli c Acd (Negative) Urine Urobilinogen (Negative) mg/dL Ur Leukocyte Dawna ase (Negative) Urine RBC (0-2) /hpf Urine WBC (0-5) /hpf Ur Squamous Epith Cells (0-5) /hpf Amorphous Sediment /hpf Urine Bacteria (NONE) /hpf Urine Mucus /hpf Discharge Plan Discharge Patient Disposition: Home Clinical Impression: Pyelonephritis Condition: Stable Prescriptions: New Zofran 4 mg tablet 4 mg PO Q6H PRN (Reason: nausea and vomiting) Qty: 20 RF: 0 Cipro 500 mg tablet 500 mg PO BID 7 Days Qty: 14 RF: 0 No Action duloxetine 30 mg capsule,delayed release(DR/EC) 30 mg PO BID 30 Days Qty: 60 RF: 0 medroxyprogesterone 150 mg/mL syringe 150 mg IM Q90D RF: 0 Discharge Orders: Discharge Order (Routine); Ordered 07/09/20 Ordered By: Dylan Floyd Referrals: Consuelo Aguayo FNP-C [Primary Care Provider] - Discharge Diet: Advance as tolerated Discharge Activity: Increase activity as tolerated Activity Restrictions/Additional Instructions: Advance diet as tolerated. Follow-up with your primary care doctor if not improving return to the ER if you worsen. Discharge Date/Time: 07/09/20 15:54 Coding Level of Care Code ED [employer] for [employer] Fwd Exam Comprehensive
[2020-07-09] MEDS: sodium chloride 0.9% 1,000 ML 999 ML IV ×2 (13:34→15:00)
[2020-07-09] MEDS: cefTRIAXone 1,000 MG in sodium chloride 0.9% (plus) 50 ML 100 MG IV (13:34)
[2020-07-09] MEDS: metoclopramide 5 mg/mL SDV 2 mL 10 MG IVP (13:34)
[2020-07-09 14:08] LABS: Add Urine Microscopic? YES; Bilirubin Urine Neg (Negative); Blood Urine 2+ (Negative); Glucose Urine UA Norm (Normal); Ketones Urine 2+ (Negative); Leukocyte Esterase Urine 1+ (Negative); Nitrate Urine Negative (Negative); Protein Urine Neg (Negative); Specific Gravity, Urine 1.015 (1.005-1.030); Sulfosalicylic Acid Urine Negative (Negative); Urine Appearance Turbid (CLEAR); Urine Color Yellow (Yellow); Urobilinogen Urine Norm (Negative); pH Urine 9 (5-7)
[2020-07-09 14:21] LABS: Basophils % 0.3 %; Hematocrit 35.1 % (37.0-47.0); Hemoglobin 10.8 g/dL (11.5-15.3); Lymphocytes # 0.6 10^3/uL (0.8-4.8); Lymphocytes % 7.9 %; Mean Corpuscular HGB Conc 30.8 g/dL (30.0-36.0); Mean Corpuscular Volume 84.4 fL (81-99); Mean Platelet Volume 10.2 fL (7.4-10.4); Monocytes # 0.3 10^3/uL (0.2-0.9); Monocytes % 3.5 %; Neutrophils # 6.22 10^3/uL (1.8-7.7); Neutrophils % 87.9 %; Nucleated Red Blood Cells % 0 %; Platelet Count 228 10^3/cmm (130-400); Red Blood Count 4.16 10^6/uL (4.1-5.3); Red Cell Distribution Width 15.9 % (12.1-15.1); White Blood Count 7.1 10^3/uL (4.0-10.0)
[2020-07-09 14:36] LABS: Lactic Sepsis W/Reflex 0.8 mmol/L (0.5-2.2)
[2020-07-09 14:37] LABS: Alanine Aminotransferase 19 U/L (0-33); Albumin Level 3.6 g/dL (3.5-5.2); Alkaline Phosphatase 59 IU/L (35-105); Aspartate Amino Transferase 23 U/L (0-32); Blood Urea Nitrogen 10 mg/dL (6-20); Calcium 8.3 mg/dL (8.5-10.5); Carbon Dioxide 23 mmol/L (22-29); Chloride 104 mmol/L (98-107); Globulin 2.3 g/dL (1.3-4.6); Glomerular Filtration Rate 121.8 mL/min (90-130); Glucose 135 mg/dL (65-115); Osmolality Calculated 281 mOsm/kg (285-295); Sodium 135 mmol/L (136-145); Total Bilirubin 0.6 mg/dL (0.15-1.2); Total Protein 5.9 g/dL (6.6-8.7)
[2020-07-09 14:43] LABS: Add Urine Culture? No; Amorphous Sediment Urine 4+ /hpf; Bacteria Urine 1+ /hpf; Mucus Urine 3+ /hpf; RBC Urine 0-4 /hpf (0-2); Squamous Epithelial Cell Urine 0-4 /hpf (0-5)
[2020-07-09] MEDS: ondansetron 2 mg/ML SDV 2 mL 4 MG IVP (15:52)
[2020-07-09 15:53] VITALS: BP 120/78; PULSE 75; RESP 14; O2SAT 99
== END 2020-07-09 15:54 | disposition home or self-care (01) ==
PROVIDERS: Emergency Provider Family Medicine; PCP Nurse Practitioner Family
DX: N12 Tubulo-interstitial nephritis, not specified as acute or chronic (principal); F17.210 Nicotine dependence, cigarettes, uncomplicated
CPT/HCPCS: 12345; 71045; 80053; 81001; 83605; 85025; 87040; 96361; 96365; 96375; 99283; 99284; J0696; J2405; J2765; J7030

== ENCOUNTER → 2020-07-19 14:31 | Outpatient (BNVA) | payer MEDICAID, SELFPAY | PROVIDERS: PCP Nurse Practitioner Family; Visit Provider Nurse Practitioner Family | DX: M79.641 Pain in right hand (principal) | CPT/HCPCS: 73130 ==

== ENCOUNTER 2020-07-31 16:28 | Inpatient (IN) | payer MEDICAID, SELFPAY ==
--- NOTE | 2020-07-31 17:20 | W.ED.PSYCH ---
Documented by User: OXANA Mauricio 08/01/20 02:32 HPI - Psych General: Chief Complaint: Psychiatric Symptoms Stated Complaint: PSYCHIATRIC Time Seen by Provider: 07/31/20 17:20 History of Present Illness: HPI Narrative: Patient is a 25-year-old female comes to the ED via police for psych eval. 96-hour hold paperwork was filed patient's mother Carmen Puri. Patient is unaware why she was brought in by the police since denies being in SI, HI, under the influence of any drugs, depression or anxiety. Patient has a history of methamphetamine and alcohol abuse. She currently does not have custody of her kids as well. The signed affidavit by mother Carmen Puri, states that she has been acting irrational making threats to herself and laying in the middle of the road. Also states that she has been violent and acting out recently as well, but no details were provided. Associated symptoms: Deny auditory hallucinations, visual hallucinations, depression, homicidal ideation or suicidal ideation Review of Systems Const: Denies: fever(s), chills or fatigue Eyes: Denies: change in vision or eye discomfort ENMT: Denies: throat pain, odynophagia, nasal discharge or nasal congestion Card: Denies: chest pain, palpitations, edema, swelling of feet/ankles, dyspnea on exertion or orthopnea Resp: Denies: dyspnea, productive cough or non-productive cough GI: Denies: abdominal pain, nausea, vomiting, diarrhea, constipation or hematochezia : Denies: flank pain, dysuria or hematuria Musc: Denies: neck pain, back pain or extremity swelling Skin/Breast: Denies: rash or new lesions Neuro: Denies: headache(s), numbness in extremities or weakness in extremities Psych: Denies: anxiety, depression, visual hallucinations, auditory hallucinations, suicidal ideation or homicidal ideation [facility] PFSH: Medical History (Updated 08/01/20 @ 09:57 by Sage Leavitt MD) Alcohol abuse Anxiety Cannabis abuse Chronic back pain greater than 3 months duration Methamphetamine dependence in remission No pertinent past medical history Thoracic scoliosis Surgical History No history of previous surgery Family History Denies family history of Hyperlipidemia Hypertension Social History Smoking and tobacco status: current every day smoker Second hand smoke exposure: Yes Alcohol intake: never Desire information about alcohol rehabilitation?: No Counseling given: No Desire information about substance/drug rehabilitation?: No Counseling given: No Adopted: No Caregiver/support person: No Lives independently: Yes Household members: spouse Housing: House Marital status: Single Number of children: 3 Highest education level completed: GED or Equivalent Current gender identity: Female Physical Exam Const: COMMON NORMALS: no acute distress, patient oriented x3, healthy appearing and alert GENERAL APPEARANCE: cooperative and comfortable HENMT: COMMON NORMALS: normocephalic HEAD & SCALP: normocephalic MOUTH: Normal oral and palatal mucosa present THROAT: posterior oropharynx normal and uvula midline Eye: COMMON NORMALS: Equal, round and reactive pupils present PUPIL: Yes Equal, round and reactive pupils present Neck/C-Spine: COMMON NORMALS: supple GENERAL: Yes normal visual inspection Resp: COMMON NORMALS: normal respiratory effort, No retractions, No use of accessory muscles and clear to auscultation bilaterally AUSCULTATION: clear to auscultation bilaterally Cardio: COMMON NORMALS: regular rate, regular rhythm, S1 normal heart sound present, S2 normal heart sound present, No gallops present (Cardio), No clicks present (Cardio), No murmurs present (Cardio) and Peripheral pulses 2+ throughout RATE: regular rate RHYTHM: regular rhythm HEART SOUNDS: S1 normal heart sound present and S2 normal heart sound present PERIPHERAL PULSES: Peripheral pulses 2+ throughout GI: COMMON NORMALS: Normal to inspection, nondistended, normoactive bowel sounds present, Soft to palpation, non-tender and no masses PALPATION: Yes Soft to palpation : COMMON NORMALS: Yes no CVA tenderness BLADDER/KIDNEY EXAM: Yes no CVA tenderness Back/Pelvis: COMMON NORMALS: no CVA tenderness Extremity: COMMON NORMALS: normal to inspection Neuro: COMMON NORMALS: patient oriented x3 and moves all extremities SENSORIUM/ORIENTATION: Yes alert Psych: COMMON NORMALS: Normal thought process present and speech normal APPEARANCE: Yes grossly normal ATTITUDE: Yes engaged ACTIVITY/MOTOR BEHAVIOR: Yes appropriate eye contact and Yes fidgeting SPEECH: Yes normal speech THOUGHT PROCESS: Normal thought process present THOUGHT CONTENT: No Suicidality present, No Homicidality present and No Hallucination(s) present ATTENTION/CONCENTRATION: Yes attention grossly intact and Yes concentration grossly intact MEMORY/COGNITION: Yes memory grossly intact and Yes cognition grossly intact INSIGHT: Fair insight present (Psych) JUDGEMENT: Fair judgement present (Psych) Skin: GENERAL SKIN EXAM: dry skin MDM - Psych MDM Narrative: Medical decision making narrative: Patient is a 25-year-old female comes to the ED via police to be placed on a 96-hour hold. All paperwork/court order was brought in with police and signed. Paperwork states that patient has been having thoughts of self-harm. Patient denies any SI, HI, depression or anxiety while here in the ED. I contacted Dr. Leavitt told him about the 96-hour hold on patient. Patient is going to be admitted to the [facility]. Lab Data: Attestation: I reviewed the patient's lab results. Labs: Lab Results 07/31/20 07/31/20 07/31/20 Range/Units 16:43 16:43 19:07 WBC 7.0 (4.0-10.0) 10^3/ uL RBC 4.92 (4.1-5.3) 10^6/u L Hgb 12.5 (11.5-15.3) g/dL Hct 40.3 (37.0-47.0) % MCV 81.9 (81-99) fL MCH 25.4 L (28.0-34.0) pg MCHC 31.0 (30.0-36.0) g/dL RDW 16.0 H (12.1-15.1) % Plt Count 295 (130-400) 10^3/c mm MPV 10.3 (7.4-10.4) fL Neut % (Auto) 66.6 % Lymph % (Auto) 25.5 % [facility] % (Auto) 6.7 % Eos % (Auto) 0.4 % Baso % (Auto) 0.7 % Neut # (Auto) 4.64 (1.8-7.7) 10^3/u L Lymph # (Auto) 1.8 (0.8-4.8) 10^3/u L [facility] # (Auto) 0.5 (0.2-0.9) 10^3/u L Eos # (Auto) 0.0 (0.0-0.8) 10^3/u L Baso # (Auto) 0.1 (0.0-0.1) 10^3/u L Nucleated RBC % (a uto) 0 % Nucleated RBCs # 0.0 /100WBC Sodium (136-145) mmol/L Potassium (3.5-5.1) mmol/L Chloride (98-107) mmol/L Carbon Dioxide (22-29) mmol/L Anion Gap (5-19) BUN (6-20) mg/dL Creatinine (0.5-0.9) mg/dL GFR Calculation (90-130) mL/min Glucose (65-115) mg/dL Calculated Osmolal ity (285-295) mOsm/k g Calcium (8.5-10.5) mg/dL Total Bilirubin (0.15-1.2) mg/dL AST (0-32) U/L ALT (0-33) U/L Alkaline Phosphata se (35-105) IU/L Total Protein (6.6-8.7) g/dL Albumin (3.5-5.2) g/dL Globulin (1.3-4.6) g/dL HCG, Qual (Negative) Urine Color Yellow (Yellow) Urine Appearance Sl hazy (CLEAR) Urine pH 8 H (5-7) Ur Specific Gravit y 1.010 (1.005-1.030) Urine Protein Neg (Negative) Urine Glucose (UA) Norm (Normal) Urine Ketones Negative (Negative) Urine Blood Neg (Negative) Urine Nitrate Negative (Negative) Urine Bilirubin Neg (Negative) Prot Sulfosalicyli c Acd Negative (Negative) Urine Urobilinogen Norm (Negative) mg/dL Ur Leukocyte Dawna ase Negative (Negative) Urine RBC None (0-2) /hpf Urine WBC None (0-5) /hpf Ur Squamous Epith Cells None (0-5) /hpf Amorphous Sediment 2+ /hpf Urine Bacteria 1+ H (NONE) /hpf Salicylates (3-10) mg/dL Urine Opiates Scre en Negative (Negative) ng/mL Acetaminophen (10-30) ug/mL Ur Barbiturates Sc reen Negative (Negative) ng/mL Ur Phencyclidine S crn Negative (Negative) ng/mL Ur Amphetamines Sc reen Negative (Negative) ng/mL U Benzodiazepines Scrn Negative (Negative) ng/mL Urine Cocaine Scre en Negative (Negative) ng/mL U Marijuana (THC) Screen Negative (Negative) ng/mL Ethyl Alcohol (0-10) mg/dL 07/31/20 07/31/20 Range/Units 19:07 19:07 WBC (4.0-10.0) 10^3/ uL RBC (4.1-5.3) 10^6/u L Hgb (11.5-15.3) g/dL Hct (37.0-47.0) % MCV (81-99) fL MCH (28.0-34.0) pg MCHC (30.0-36.0) g/dL RDW (12.1-15.1) % Plt Count (130-400) 10^3/c mm MPV (7.4-10.4) fL Neut % (Auto) % Lymph % (Auto) % [facility] % (Auto) % Eos % (Auto) % Baso % (Auto) % Neut # (Auto) (1.8-7.7) 10^3/u L Lymph # (Auto) (0.8-4.8) 10^3/u L [facility] # (Auto) (0.2-0.9) 10^3/u L Eos # (Auto) (0.0-0.8) 10^3/u L Baso # (Auto) (0.0-0.1) 10^3/u L Nucleated RBC % (a uto) % Nucleated RBCs # /100WBC Sodium 140 (136-145) mmol/L Potassium 3.9 (3.5-5.1) mmol/L Chloride 108 H (98-107) mmol/L Carbon Dioxide 23 (22-29) mmol/L Anion Gap 12.9 (5-19) BUN 12 (6-20) mg/dL Creatinine 0.6 (0.5-0.9) mg/dL GFR Calculation 121.8 (90-130) mL/min Glucose 191 H (65-115) mg/dL Calculated Osmolal ity 295 (285-295) mOsm/k g Calcium 9.5 (8.5-10.5) mg/dL Total Bilirubin 0.3 (0.15-1.2) mg/dL AST 28 (0-32) U/L ALT 24 (0-33) U/L Alkaline Phosphata se 56 (35-105) IU/L Total Protein 6.6 (6.6-8.7) g/dL Albumin 4.2 (3.5-5.2) g/dL Globulin 2.4 (1.3-4.6) g/dL HCG, Qual Negative (Negative) Urine Color (Yellow) Urine Appearance (CLEAR) Urine pH (5-7) Ur Specific Gravit y (1.005-1.030) Urine Protein (Negative) Urine Glucose (UA) (Normal) Urine Ketones (Negative) Urine Blood (Negative) Urine Nitrate (Negative) Urine Bilirubin (Negative) Prot Sulfosalicyli c Acd (Negative) Urine Urobilinogen (Negative) mg/dL Ur Leukocyte Dawna ase (Negative) Urine RBC (0-2) /hpf Urine WBC (0-5) /hpf Ur Squamous Epith Cells (0-5) /hpf Amorphous Sediment /hpf Urine Bacteria (NONE) /hpf Salicylates < 0.3 L (3-10) mg/dL Urine Opiates Scre en (Negative) ng/mL Acetaminophen < 5.0 L (10-30) ug/mL Ur Barbiturates Sc reen (Negative) ng/mL Ur Phencyclidine S crn (Negative) ng/mL Ur Amphetamines Sc reen (Negative) ng/mL U Benzodiazepines Scrn (Negative) ng/mL Urine Cocaine Scre en (Negative) ng/mL U Marijuana (THC) Screen (Negative) ng/mL Ethyl Alcohol < 10 (0-10) mg/dL Discharge Plan Discharge Patient Disposition: Admitted As Inpatient Admit Provider: Sage Leavitt Condition: Stable Coding Level of Care Code ED Computer Specialist for Chg Fwd Exam Comprehensive Documented by User: Nohemy Mike MD, [facility] [place] 08/01/20 11:30 HPI - Psych General: Chief Complaint: Psychiatric Symptoms Stated Complaint: PSYCHIATRIC Time Seen by Provider: 07/31/20 17:20 PFSH ED PFSH: Medical History (Updated 08/01/20 @ 09:57 by Sage Leavitt MD) Alcohol abuse Anxiety Cannabis abuse Chronic back pain greater than 3 months duration Methamphetamine dependence in remission No pertinent past medical history Thoracic scoliosis Surgical History No history of previous surgery Family History Denies family history of Hyperlipidemia Hypertension Social History Smoking and tobacco status: current every day smoker Second hand smoke exposure: Yes Alcohol intake: never Desire information about alcohol rehabilitation?: No Counseling given: No Desire information about substance/drug rehabilitation?: No Counseling given: No Adopted: No Caregiver/support person: No Lives independently: Yes Household members: spouse Housing: House Marital status: Single Number of children: 3 Highest education level completed: GED or Equivalent Current gender identity: Female MDM - Psych MDM Narrative: Medical decision making narrative: See the midlevel providers note for history and physical. Essentially she is a 25-year-old female patient brought in by law enforcement and placed on a 96-hour hold due to behavioral issues and suicidal ideation. She is medically cleared and admitted to the psychiatric unit. Lab Data: Labs: Lab Results 07/31/20 07/31/20 07/31/20 Range/Units 16:43 16:43 19:07 WBC 7.0 (4.0-10.0) 10^3/ uL RBC 4.92 (4.1-5.3) 10^6/u L Hgb 12.5 (11.5-15.3) g/dL Hct 40.3 (37.0-47.0) % MCV 81.9 (81-99) fL MCH 25.4 L (28.0-34.0) pg MCHC 31.0 (30.0-36.0) g/dL RDW 16.0 H (12.1-15.1) % Plt Count 295 (130-400) 10^3/c mm MPV 10.3 (7.4-10.4) fL Neut % (Auto) 66.6 % Lymph % (Auto) 25.5 % [facility] % (Auto) 6.7 % Eos % (Auto) 0.4 % Baso % (Auto) 0.7 % Neut # (Auto) 4.64 (1.8-7.7) 10^3/u L Lymph # (Auto) 1.8 (0.8-4.8) 10^3/u L [facility] # (Auto) 0.5 (0.2-0.9) 10^3/u L Eos # (Auto) 0.0 (0.0-0.8) 10^3/u L Baso # (Auto) 0.1 (0.0-0.1) 10^3/u L Nucleated RBC % (a uto) 0 % Nucleated RBCs # 0.0 /100WBC Sodium (136-145) mmol/L Potassium (3.5-5.1) mmol/L Chloride (98-107) mmol/L Carbon Dioxide (22-29) mmol/L Anion Gap (5-19) BUN (6-20) mg/dL Creatinine (0.5-0.9) mg/dL GFR Calculation (90-130) mL/min Glucose (65-115) mg/dL Calculated Osmolal ity (285-295) mOsm/k g Calcium (8.5-10.5) mg/dL Total Bilirubin (0.15-1.2) mg/dL AST (0-32) U/L ALT (0-33) U/L Alkaline Phosphata se (35-105) IU/L Total Protein (6.6-8.7) g/dL Albumin (3.5-5.2) g/dL Globulin (1.3-4.6) g/dL HCG, Qual (Negative) Urine Color Yellow (Yellow) Urine Appearance Sl hazy (CLEAR) Urine pH 8 H (5-7) Ur Specific Gravit y 1.010 (1.005-1.030) Urine Protein Neg (Negative) Urine Glucose (UA) Norm (Normal) Urine Ketones Negative (Negative) Urine Blood Neg (Negative) Urine Nitrate Negative (Negative) Urine Bilirubin Neg (Negative) Prot Sulfosalicyli c Acd Negative (Negative) Urine Urobilinogen Norm (Negative) mg/dL Ur Leukocyte Dawna ase Negative (Negative) Urine RBC None (0-2) /hpf Urine WBC None (0-5) /hpf Ur Squamous Epith Cells None (0-5) /hpf Amorphous Sediment 2+ /hpf Urine Bacteria 1+ H (NONE) /hpf Salicylates (3-10) mg/dL Urine Opiates Scre en Negative (Negative) ng/mL Acetaminophen (10-30) ug/mL Ur Barbiturates Sc reen Negative (Negative) ng/mL Ur Phencyclidine S crn Negative (Negative) ng/mL Ur Amphetamines Sc reen Negative (Negative) ng/mL U Benzodiazepines Scrn Negative (Negative) ng/mL Urine Cocaine Scre en Negative (Negative) ng/mL U Marijuana (THC) Screen Negative (Negative) ng/mL Ethyl Alcohol (0-10) mg/dL 07/31/20 07/31/20 Range/Units 19:07 19:07 WBC (4.0-10.0) 10^3/ uL RBC (4.1-5.3) 10^6/u L Hgb (11.5-15.3) g/dL Hct (37.0-47.0) % MCV (81-99) fL MCH (28.0-34.0) pg MCHC (30.0-36.0) g/dL RDW (12.1-15.1) % Plt Count (130-400) 10^3/c mm MPV (7.4-10.4) fL Neut % (Auto) % Lymph % (Auto) % [facility] % (Auto) % Eos % (Auto) % Baso % (Auto) % Neut # (Auto) (1.8-7.7) 10^3/u L Lymph # (Auto) (0.8-4.8) 10^3/u L [facility] # (Auto) (0.2-0.9) 10^3/u L Eos # (Auto) (0.0-0.8) 10^3/u L Baso # (Auto) (0.0-0.1) 10^3/u L Nucleated RBC % (a uto) % Nucleated RBCs # /100WBC Sodium 140 (136-145) mmol/L Potassium 3.9 (3.5-5.1) mmol/L Chloride 108 H (98-107) mmol/L Carbon Dioxide 23 (22-29) mmol/L Anion Gap 12.9 (5-19) BUN 12 (6-20) mg/dL Creatinine 0.6 (0.5-0.9) mg/dL GFR Calculation 121.8 (90-130) mL/min Glucose 191 H (65-115) mg/dL Calculated Osmolal ity 295 (285-295) mOsm/k g Calcium 9.5 (8.5-10.5) mg/dL Total Bilirubin 0.3 (0.15-1.2) mg/dL AST 28 (0-32) U/L ALT 24 (0-33) U/L Alkaline Phosphata se 56 (35-105) IU/L Total Protein 6.6 (6.6-8.7) g/dL Albumin 4.2 (3.5-5.2) g/dL Globulin 2.4 (1.3-4.6) g/dL HCG, Qual Negative (Negative) Urine Color (Yellow) Urine Appearance (CLEAR) Urine pH (5-7) Ur Specific Gravit y (1.005-1.030) Urine Protein (Negative) Urine Glucose (UA) (Normal) Urine Ketones (Negative) Urine Blood (Negative) Urine Nitrate (Negative) Urine Bilirubin (Negative) Prot Sulfosalicyli c Acd (Negative) Urine Urobilinogen (Negative) mg/dL Ur Leukocyte Dawna ase (Negative) Urine RBC (0-2) /hpf Urine WBC (0-5) /hpf Ur Squamous Epith Cells (0-5) /hpf Amorphous Sediment /hpf Urine Bacteria (NONE) /hpf Salicylates < 0.3 L (3-10) mg/dL Urine Opiates Scre en (Negative) ng/mL Acetaminophen < 5.0 L (10-30) ug/mL Ur Barbiturates Sc reen (Negative) ng/mL Ur Phencyclidine S crn (Negative) ng/mL Ur Amphetamines Sc reen (Negative) ng/mL U Benzodiazepines Scrn (Negative) ng/mL Urine Cocaine Scre en (Negative) ng/mL U Marijuana (THC) Screen (Negative) ng/mL Ethyl Alcohol < 10 (0-10) mg/dL Discharge Plan Discharge Patient Disposition: Admitted As Inpatient Admit Provider: Sage Leavitt Condition: Stable Coding Level of Care Code ED Computer Specialist for Chg Fwd Exam Comprehensive
[2020-07-31 19:10] VITALS: BMI 18.1
[2020-07-31 19:15] LABS: Basophils # 0.1 10^3/uL (0.0-0.1); Basophils % 0.7 %; Eosinophils % 0.4 %; Hematocrit 40.3 % (37.0-47.0); Hemoglobin 12.5 g/dL (11.5-15.3); Lymphocytes # 1.8 10^3/uL (0.8-4.8); Lymphocytes % 25.5 %; Mean Corpuscular Hemoglobin 25.4 pg (28.0-34.0); Mean Corpuscular Volume 81.9 fL (81-99); Mean Platelet Volume 10.3 fL (7.4-10.4); Monocytes # 0.5 10^3/uL (0.2-0.9); Monocytes % 6.7 %; Neutrophils # 4.64 10^3/uL (1.8-7.7); Neutrophils % 66.6 %; Nucleated Red Blood Cells % 0 %; Platelet Count 295 10^3/cmm (130-400); Red Blood Count 4.92 10^6/uL (4.1-5.3)
[2020-07-31 19:21] VITALS: BP 150/93; PULSE 90; RESP 16; TEMP 36.9; O2SAT 97
[2020-07-31 19:24] LABS: HCG, Serum Qual Negative (Negative)
[2020-07-31 19:32] LABS: Alanine Aminotransferase 24 U/L (0-33); Albumin Level 4.2 g/dL (3.5-5.2); Alkaline Phosphatase 56 IU/L (35-105); Anion Gap 12.9 (5-19); Aspartate Amino Transferase 28 U/L (0-32); Blood Urea Nitrogen 12 mg/dL (6-20); Calcium 9.5 mg/dL (8.5-10.5); Carbon Dioxide 23 mmol/L (22-29); Chloride 108 mmol/L (98-107); Globulin 2.4 g/dL (1.3-4.6); Glomerular Filtration Rate 121.8 mL/min (90-130); Glucose 191 mg/dL (65-115); Osmolality Calculated 295 mOsm/kg (285-295); Potassium 3.9 mmol/L (3.5-5.1); Sodium 140 mmol/L (136-145); Total Bilirubin 0.3 mg/dL (0.15-1.2); Total Protein 6.6 g/dL (6.6-8.7)
[2020-07-31 19:36] LABS: Acetaminophen < 5.0 ug/mL (10-30); Alcohol Level < 10 mg/dL (0-10); Salicylate < 0.3 mg/dL (3-10)
[2020-07-31 19:48] LABS: Amphetamines Screen Urine Negative (Negative); Barbiturates Screen Urine Negative (Negative); Benzodiazepines Screen Urine Negative (Negative); Cocaine Screen Urine Negative (Negative); Opiate Screen Urine Negative (Negative); PCP Screen Urine Negative (Negative); THC Screen Urine Negative (Negative)
[2020-07-31 19:51] LABS: Add Urine Culture? No; Amorphous Sediment Urine 2+ /hpf; Bacteria Urine 1+ /hpf; Bilirubin Urine Neg (Negative); Blood Urine Neg (Negative); Glucose Urine UA Norm (Normal); Ketones Urine Negative (Negative); Leukocyte Esterase Urine Negative (Negative); Nitrate Urine Negative (Negative); Protein Urine Neg (Negative); Sulfosalicylic Acid Urine Negative (Negative); Urine Appearance SL Hazy (CLEAR); Urine Color Yellow (Yellow); Urobilinogen Urine Norm (Negative); pH Urine 8 (5-7)
[2020-07-31 23:02] VITALS: BP 141/85; PULSE 87; RESP 16; O2SAT 98
[2020-07-31 23:05] VITALS: BP 153/103; PULSE 68; RESP 18; TEMP 36.7; O2SAT 96
[2020-07-31] MEDS: loperamide 2 mg Capsule PO (23:37)
[2020-07-31] MEDS: trazodone 50 mg Tablet PO (23:37)
--- NOTE | 2020-07-31 23:39 | PC.NURSE ---
PRN TRAZODONE & IMMODIUM ADMINISTERED TRAZODONE 50 MG PO PER PT REQUEST FOR SLEEP AID AND IMMODIUM 2MG PER PT REQUEST. WILL MONITOR FOR MEDICATION EFFECTIVENESS.
[2020-08-01 06:00] VITALS: BP 120/67; PULSE 64; RESP 17; TEMP 36.4; O2SAT 98
--- NOTE | 2020-08-01 07:29 | PC.NURSE ---
INFLUENZA VACCINE 1 SINGLE DOSE 0.5 ML GIVEN IM IN LEFT DELTOID. PT EDUCATED ON MED GIVEN AND VERBALIZED UNDERSTANDING. WILL CONT TO MONITOR INJECTION SITE FOR ANY REDNESS, SWELLING, OR IRRITATION LOT [id number] EXP 03/05/21
[2020-08-01] MEDS: loperamide 2 mg Capsule PO ×2 (09:40→17:31)
--- NOTE | 2020-08-01 09:41 | PC.NURSE ---
PRN LOPERAMIDE 2 MG GIVEN PO PER PT C/O LOOSE STOOL. WILL CONT TO MONITOR.
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
[2020-08-01] MEDS: fluoxetine 10 mg Capsule PO (10:41)
[2020-08-01] MEDS: nicotine 21 mg Patch 1 PATCH TRANSDERMA (11:54)
[2020-08-01 14:00] VITALS: BP 134/91; PULSE 85; RESP 18; TEMP 36.2; O2SAT 96
[2020-08-01] MEDS: hyDROXYzine 25 mg Capsule 50 MG PO (14:33)
--- NOTE | 2020-08-01 14:34 | PC.NURSE ---
PRN VISTARIL Patient requested medication for anxiety. Given 50 mg vistaril po.
[2020-08-01] MEDS: acetaminophen 325 mg Tablet 650 MG PO (15:22)
[2020-08-01] MEDS: nicotine 2 mg Gum BUCCAL ×2 (17:31→20:30)
--- NOTE | 2020-08-01 17:32 | PC.NURSE ---
PRN IMODIUM 2 MG GIVEN PO PER PT C/O LOOSE STOOL. WILL CONT TO MONITOR
[2020-08-01] MEDS: gabapentin 100 mg Capsule 200 MG PO (20:22)
[2020-08-01] MEDS: trazodone 50 mg Tablet PO (20:22)
--- NOTE | 2020-08-01 20:22 | PC.NURSE ---
Addendum entered by Carleen Osborne LPN 08/01/20 21:28: PRN TRAZODONE FOLLOW-UP PRN MEDICATION NOT EFFECTIVE. PT CONTINUES TO BE AWAKE AND RESTLESS IN HER ROOM. Original Note: PRN TRAZODONE ADMINISTERED TRAZODONE 50 MG PO PER PT REQUEST FOR SLEEP AID. WILL MONITOR FOR MEDICATION EFFECTIVENESS.
[2020-08-01] MEDS: OLANZapine 5 mg ODT PO (21:25)
--- NOTE | 2020-08-01 21:29 | PC.NURSE ---
PRN ZYPREXA ZYDIS PT CAME TO THE NURSES STATION AGITATED BECAUSE SHE IS UNABLE TO SLEEP. ADMINISTERED ZYPREXA ZYDIS 5MG SUBLINGUAL, WILL MONITOR FOR MEDICATION EFFECTIVENESS.
[2020-08-01 22:00] VITALS: BP 153/88; PULSE 82; RESP 18; TEMP 37.1; O2SAT 99
[2020-08-02 06:00] VITALS: BP 128/81; PULSE 77; RESP 15; TEMP 36.9; O2SAT 97
[2020-08-02] MEDS: fluoxetine 10 mg Capsule PO (08:39)
[2020-08-02] MEDS: hyDROXYzine 25 mg Capsule 50 MG PO (09:18)
[2020-08-02] MEDS: loperamide 2 mg Capsule PO (09:18)
--- NOTE | 2020-08-02 09:19 | PC.NURSE ---
Anxiety/PRN Vistaril Patient at nurses station complaints of increased anxiety. PRN Vistaril given at this time.
[2020-08-02 09:44] VITALS: BP 128/81; PULSE 77; RESP 15; TEMP 36.9; O2SAT 97
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
== END 2020-08-02 10:37 | disposition home or self-care (01) | DRG 885 ==
LOC: ER 17:20 → NP 22:52
PROVIDERS: Admitting Provider Psychiatry & Neurology Psychiatry; Emergency Provider Physician Assistant; PCP Nurse Practitioner Family; Visit Provider Psychiatry & Neurology Psychiatry
DX: F33.0 Major depressive disorder, recurrent, mild (principal); F41.1 Generalized anxiety disorder; F43.12 Post-traumatic stress disorder, chronic; Z63.0 Problems in relationship with spouse or partner; F12.10 Cannabis abuse, uncomplicated; F15.11 Other stimulant abuse, in remission; F10.10 Alcohol abuse, uncomplicated; G47.00 Insomnia, unspecified; G89.29 Other chronic pain; M41.84 Other forms of scoliosis, thoracic region; F17.210 Nicotine dependence, cigarettes, uncomplicated
CPT/HCPCS: 12345; 80053; 80306; 80307; 81001; 84703; 85025; 90471; 90686; 99284

== ENCOUNTER 2020-08-07 15:14 | Outpatient (CLI) | payer MEDICAID, SELFPAY ==
--- NOTE | 2020-08-07 | XR_ITS ---
WS: [id number] Cervical spine, 3 views, 08/07/2020 Clinical Data: NECK PAIN Comparison: None. Findings: No compression fractures are seen. The disc heights are normal. There is no prevertebral so ft tissue swelling. The odontoid is unremarkable. The soft tissues of the neck and the lung apices ar e normal. XR/XR cervical spine 3V* [id number] Impression: Negative cervical spine.
== END 2020-08-07 15:15 | disposition home or self-care (01) ==
PROVIDERS: PCP Nurse Practitioner Family; Visit Provider Nurse Practitioner Family
DX: M54.9 Dorsalgia, unspecified (principal); G89.29 Other chronic pain; M54.2 Cervicalgia
CPT/HCPCS: 72040

== ENCOUNTER 2020-08-12 23:11 | Emergency (ER) | payer MEDICAID, SELFPAY ==
[2020-08-12 23:19] VITALS: BP 118/57; PULSE 98; RESP 16; TEMP 36.9; O2SAT 95
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
[2020-08-13] MEDS: hyDROXYzine 25 mg Capsule 50 MG PO (01:24)
[2020-08-13 01:27] VITALS: BP 128/65; PULSE 78; O2SAT 96
[2020-08-13 02:52] VITALS: BP 118/62; PULSE 81; O2SAT 96
== END 2020-08-13 06:03 | disposition home or self-care (01) ==
PROVIDERS: Emergency Provider Physician Assistant; PCP Nurse Practitioner Family
DX: F41.9 Anxiety disorder, unspecified (principal); F17.210 Nicotine dependence, cigarettes, uncomplicated
CPT/HCPCS: 12345; 99284

== ENCOUNTER 2024-07-31 21:44 | Inpatient (IN) | payer MEDICAID, SELFPAY ==
[2024-07-31] VITALS (12 sets, daily range): BP systolic 116–147; BP diastolic 83–122; PULSE 80–109; RESP 12–16; TEMP 36.2–36.7; O2SAT 97–100; BMI 20.7
--- NOTE | 2024-07-31 21:48 | ECG_ITS ---
[employer] Test Date: 2024-07-31 Pat Name: Maxine Puri Department: Room: [facility] Gender: Female Wedding Consultant: : 1995 Requested By: Megan Lane Order Number: [id number] De La Rosa MD: Mell Mata M.D. Measurements Intervals [place] Rate: 113 P: 57 MO: 146 QRS: 68 QRSD: 97 T: -37 QT: 409 QTc: 562 Interpretive Statements SINUS TACHYCARDIA LEFT ATRIAL ENLARGEMENT [-0.15mV P-WAVE IN V1/V2] ST DEVIATION AND MODERATE T-WAVE ABNORMALITY, CONSIDER INFERIOR ISCHEMIA [-0.1+ mV T-WAVE IN II/aVF] No previous ECG available for comparison Electronically Signed On 08-02-2024 19:10:31 [employer] by Mell Mata M.D. [email or web address]
[2024-07-31] MEDS: naloxone 0.4 mg/ml SDV IVP (21:54)
--- NOTE | 2024-07-31 22:02 | W.ED.OVERDOS ---
HPI - Overdose General: Chief Complaint: Overdose Stated Complaint: unresponsive OD? Time Seen by Provider: 07/31/24 21:47 History of Present Illness: 29-year-old female who presents the emergency room with her boyfriend in unresponsive state. He says she sent him a picture of pills she was going to take. Apparently this is an intentional overdose. He does not know what she took. Related Data Home Medications Medication Instructions Recorded Confirmed melatonin 1 tab PO BEDTIME PRN Sleep 07/31/20 04/05/24 valerian root 1 tab PO BEDTIME PRN Sleep 07/31/20 04/05/24 Previous Rx's Medication Instructions Recorded buspirone 30 mg tablet 30 mg PO BID 30 days #60 tabs 10/31/21 chlorhexidine gluconate 0.12 % 15 ml buccal BID #473 mL 10/31/21 mouthwash (Peridex) fluoxetine 40 mg capsule 40 mg PO DAILY #30 caps 10/31/21 gabapentin 400 mg capsule 400 mg PO TID 30 days #90 caps 10/31/21 pillow #1 ea 11/17/21 dimethicone 1.2 %-colloidal See Rx Instructions topical 11/18/21 oatmeal lotion (Aveeno Daily .COMPLEX #227 grams Moisturizing) trazodone 150 mg tablet 150 mg PO .hs 30 days #30 tabs 11/18/21 ibuprofen 800 mg tablet 800 mg PO BID PRN post operative 11/27/21 #60 tabs Allergies Allergy/AdvReac Type Severity Reaction Status Date / Time No Known Allergies Allergy Verified 04/05/24 11:10 Review of Systems General: Reports: ROS unobtainable due to medical condition and ROS unobtainable due to mental status PFS ED PFSH: Medical History Insomnia Methamphetamine dependence in remission Alcohol abuse Cannabis abuse Thoracic scoliosis Anxiety Chronic back pain greater than 3 months duration Surgical History No history of previous surgery Family History Denies family history of Hyperlipidemia Hypertension Social History (Updated 04/05/24 @ 11:11 by Sapphire Yadiel, UNDERGROUND FOREMAN) Smoking and tobacco/nicotine status: former use of tobacco/nicotine Physical Exam Narrative: EXAM NARRATIVE: General: responds to painful stimuli. Skin: Warm, dry Head: Normocephalic, atraumatic. Neck: Supple, trachea midline. Eye: Extraocular movements are intact. Ears, nose, mouth and throat: Dry oral mucosa. Cardiovascular: Regular rate and rhythm, Normal peripheral perfusion. Respiratory: Lungs are clear to auscultation, respirations are non-labored, breath sounds are equal, Symmetrical chest wall expansion. Gastrointestinal: Soft, Non distended, Normal bowel sounds. Musculoskeletal: no deformity. Neurological: Not Alert and oriented, No obvious focal neurological deficit observed. Psychiatric: unable to assess. Course Vital Signs: Vital signs: Vital Signs Temperature 98.0 F 07/31/24 21:48 Pulse Rate 89 07/31/24 23:00 Respiratory Rate 12 07/31/24 22:38 Blood Pressure 116/83 07/31/24 23:00 Pulse Oximetry 99 07/31/24 23:00 Oxygen Delivery Me thod Room Air 07/31/24 22:45 MDM - Overdose Medical Decision Making Differential diagnosis: Patient with reported depression and suicidal ideation and drug overdose. concerns for infection, alcohol intoxication, cardiac issues or other medical problems prior to psychiatric admission. Workup: labwork, ekg ordered to evaluate the pathologies and to clear the patient medically prior to psychiatric admission EKG: Time 2150. Rate 113. Sinus tachycardia. Nonspecific ST-T changes, no ectopy, normal [place] & QRS intervals, This was reviewed and interpreted by myself the ER physician at 2155 Lab Review: Laboratory results were reviewed and interpreted by myself the emergency room physician. Lab review: - EKG shows no ischemic changes. - Blood alcohol level is negative, -Tylenol and salicylate levels are negative. - Drug screen is positive for amphetamines and marijuana - No signs of infection, urinalysis clear and white count is not elevated - No anemia. - BUN and creatinine are within normal limits. Consultation: Control was contacted and their recommendations are being followed. Consultation: I spoke with Dr. Babrer who is on-call for the hospitalist service who agrees to admission to the ICU Assessment and plan: Drug overdose ? Patient was not responsive to Narcan. Was given a 0.4 mg dose at a 2 mg dose. -Admission to neuropsychiatric unit for continued evaluation and treatment. - All lab work was reviewed and interpreted personally by myself, the ER physician - Evaluation and treatment of this problem were appropriate in the emergency setting Lab Data 07/31/24 22:10 07/31/24 22:10 Laboratory Results WBC 6.22 10^3/uL (3.29-11.43) 07/31/24 22:10 RBC 4.93 10^6/uL (3.85-5.65) 07/31/24 22:10 Hgb 13.40 g/dL (11.27-16.99) 07/31/24 22:10 Hct 41.3 % (36-47) 07/31/24 22:10 MCV 83.8 fl (85-98) L 07/31/24 22:10 MCH 27.2 pg (27-33) 07/31/24 22:10 MCHC 32.4 g/dL (30-55) 07/31/24 22:10 RDW 13.7 % (12.1-15.1) 07/31/24 22:10 Plt Count 313 10^3/cmm (157-399) 07/31/24 22:10 MPV 9.9 fL (7.4-10.4) 07/31/24 22:10 Neut % (Auto) 49.9 % 07/31/24 22:10 Lymph % (Auto) 40.8 % 07/31/24 22:10 [place] % (Auto) 7.1 % 07/31/24 22:10 Eos % (Auto) 1.1 % 07/31/24 22:10 Baso % (Auto) 0.8 % 07/31/24 22:10 Neut # (Auto) 3.10 10^3/uL (1.8-7.7) 07/31/24 22:10 Lymph # (Auto) 2.5 10^3/uL (0.8-4.8) 07/31/24 22:10 [place] # (Auto) 0.4 10^3/uL (0.2-0.9) 07/31/24 22:10 Eos # (Auto) 0.1 10^3/uL (0.0-0.8) 07/31/24 22:10 Baso # (Auto) 0.1 10^3/uL (0.0-0.1) 07/31/24 22:10 Nucleated RBC % (auto) 0 % 07/31/24 22:10 Nucleated RBCs # 0.0 /100WBC 07/31/24 22:10 Sodium 137 mmol/L (136-145) 07/31/24 22:10 Potassium 3.4 mmol/L (3.5-5.1) L 07/31/24 22:10 Chloride 100 mmol/L (98-107) 07/31/24 22:10 Carbon Dioxide 27 mmol/L (22-29) 07/31/24 22:10 Anion Gap 13.4 (5-19) 07/31/24 22:10 BUN 12 mg/dL (6-20) 07/31/24 22:10 Creatinine 0.8 mg/dL (0.5-0.9) 07/31/24 22:10 GFR Calculation 84.8 mL/min (90-130) L 07/31/24 22:10 Glucose 87 mg/dL (65-115) 07/31/24 22:10 Calculated Osmolality 283 mOsm/kg (285-295) L 07/31/24 22:10 Lactic Acid 1.0 mmol/L (0.5-2.2) 07/31/24 22:10 Calcium 9.3 mg/dL (8.5-10.5) 07/31/24 22:10 Total Bilirubin 0.4 mg/dL (0.15-1.2) 07/31/24 22:10 AST 17 U/L (0-32) 07/31/24 22:10 ALT 14 U/L (0-33) 07/31/24 22:10 Alkaline Phosphatase 74 U/L (35-105) 07/31/24 22:10 Total Protein 7.2 g/dL (6.6-8.7) 07/31/24 22:10 Albumin 4.2 g/dL (3.5-5.2) 07/31/24 22:10 Globulin 3.0 g/dL (1.3-4.6) 07/31/24 22:10 HCG, Qual Negative (Negative) 07/31/24 22:10 Urine Color Yellow (Yellow) 07/31/24 22:10 Urine Appearance Clear (CLEAR) 07/31/24 22:10 Urine pH 6.0 (5-7) 07/31/24 22:10 Ur Specific [place] 1.022 (1.005-1.030) 07/31/24 22:10 Urine Protein 1+ (Negative) A 07/31/24 22:10 Urine Glucose (UA) Negative (Normal) 07/31/24 22:10 Urine Ketones Trace (Negative) 07/31/24 22:10 Urine Blood 3+ (Negative) A 07/31/24 22:10 Urine Nitrate Negative (Negative) 07/31/24 22:10 Urine Bilirubin Negative (Negative) 07/31/24 22:10 Urine Urobilinogen 1.0 mg/dL (Negative) 07/31/24 22:10 Ur Leukocyte Esterase 1+ (Negative) A 07/31/24 22:10 Urine RBC 51-100 /hpf (0-2) H 07/31/24 22:10 Urine WBC 11-20 /hpf (0-5) H 07/31/24 22:10 Ur Squamous Epith Cells 11-20 /hpf (0-5) 07/31/24 22:10 Amorphous Sediment Not Reportable 07/31/24 22:10 Urine Bacteria 2+ /hpf (NONE) H 07/31/24 22:10 Hyaline Casts 1.65 /lpf 07/31/24 22:10 Salicylates < 0.3 mg/dL (3-10) L 07/31/24 22:10 Urine Opiates Screen Negative ng/mL (Negative) 07/31/24 22:10 Acetaminophen < 5.0 ug/mL (10-30) L 07/31/24 22:10 Ur Barbiturates Screen Negative ng/mL (Negative) 07/31/24 22:10 Ur Phencyclidine Scrn Negative ng/mL (Negative) 07/31/24 22:10 Ur Amphetamines Screen Positive ng/mL (Negative) H 07/31/24 22:10 U Benzodiazepines Scrn Negative ng/mL (Negative) 07/31/24 22:10 Urine Cocaine Screen Negative ng/mL (Negative) 07/31/24 22:10 U Marijuana (THC) Screen Positive ng/mL (Negative) H 07/31/24 22:10 Ethyl Alcohol < 10 mg/dL (0-10) 07/31/24 22:10 No radiology studies performed this visit Discharge Plan Discharge Patient Disposition: Admitted As Inpatient Clinical Impression: Drug overdose, Suicide attempt by multiple drug overdose Condition: Stable Coding Level of Care Code ED Bone Density Technician for Karina Best
[2024-07-31 22:13] LABS: Basophils # 0.1 10^3/uL (0.0-0.1); Basophils % 0.8 %; Eosinophils # 0.1 10^3/uL (0.0-0.8); Eosinophils % 1.1 %; Hematocrit 41.3 % (36-47); Lymphocytes # 2.5 10^3/uL (0.8-4.8); Lymphocytes % 40.8 %; Mean Corpuscular HGB Conc 32.4 g/dL (30-55); Mean Corpuscular Hemoglobin 27.2 pg (27-33); Mean Corpuscular Volume 83.8 fl (85-98); Mean Platelet Volume 9.9 fL (7.4-10.4); Monocytes # 0.4 10^3/uL (0.2-0.9); Monocytes % 7.1 %; Neutrophils % 49.9 %; Nucleated Red Blood Cells % 0 %; Platelet Count 313 10^3/cmm (157-399); Red Blood Count 4.93 10^6/uL (3.85-5.65); Red Cell Distribution Width 13.7 % (12.1-15.1); White Blood Count 6.22 10^3/uL (3.29-11.43)
--- NOTE | 2024-07-31 22:13 | PC.NURSE ---
pt is not able to answer SI questions d/t being sedated
[2024-07-31 22:15] LABS: HCG Qualitative Urine. Negative (Negative)
[2024-07-31] MEDS: naloxone 0.4 mg/ml SDV 2 MG IVP (22:17)
--- NOTE | 2024-07-31 22:25 | PC.NURSE ---
Poison control contacted at this time and info being faxed
[2024-07-31 22:27] LABS: Bilirubin Urine Negative (Negative); Blood Urine 3+ (Negative); Glucose Urine UA Negative (Normal); Ketones Urine Trace (Negative); Leukocyte Esterase Urine 1+ (Negative); Nitrate Urine Negative (Negative); Protein Urine 1+ (Negative); Specific Gravity, Urine 1.022 (1.005-1.030); Urine Appearance Clear (CLEAR); Urine Color Yellow (Yellow)
[2024-07-31 22:29] LABS: Alanine Aminotransferase 14 U/L (0-33); Albumin Level 4.2 g/dL (3.5-5.2); Alkaline Phosphatase 74 U/L (35-105); Anion Gap 13.4 (5-19); Aspartate Amino Transferase 17 U/L (0-32); Blood Urea Nitrogen 12 mg/dL (6-20); Calcium 9.3 mg/dL (8.5-10.5); Carbon Dioxide 27 mmol/L (22-29); Chloride 100 mmol/L (98-107); Glomerular Filtration Rate 84.8 mL/min (90-130); Glucose 87 mg/dL (65-115); Osmolality Calculated 283 mOsm/kg (285-295); Potassium 3.4 mmol/L (3.5-5.1); Sodium 137 mmol/L (136-145); Total Bilirubin 0.4 mg/dL (0.15-1.2); Total Protein 7.2 g/dL (6.6-8.7)
[2024-07-31 22:32] LABS: Amphetamines Screen Urine Positive (Negative); Barbiturates Screen Urine Negative (Negative); Benzodiazepines Screen Urine Negative (Negative); Cocaine Screen Urine Negative (Negative); Opiate Screen Urine Negative (Negative); PCP Screen Urine Negative (Negative); THC Screen Urine Positive (Negative)
[2024-07-31 22:36] LABS: Acetaminophen < 5.0 ug/mL (10-30); Alcohol Level < 10 mg/dL (0-10); Salicylate < 0.3 mg/dL (3-10)
[2024-07-31 22:47] LABS: Bacteria Urine 2+ /hpf; Hyaline Casts Urine 1.65 /lpf; RBC Urine 51-100 /hpf (0-2)
[2024-07-31 22:48] LABS: Add Urine Culture? Yes
--- NOTE | 2024-07-31 22:49 | PC.NURSE ---
96 HH Attempted to serve 96 HH to pt by this RN and Security. Pt unarousable to anything other than painful stimuli. Pt supporting her airway without distress at this time. VSS. Copy of 96 HH left in pt belongings.
--- NOTE | 2024-07-31 23:35 | PC.NURSE ---
Pt arrived to ICU via gurney from ED. Upon arrival she is responsive only to painful stimuli. Pupils are brisk/3mm/GERALDINE, breathing is spontaneous and non labored, no respiratory distress, oxygen saturation 99% on room air. Secretions suctioned from mouth, pt pulled away from yanuer when suctioned.
[2024-08-01] VITALS (54 sets, daily range): BP systolic 116–156; BP diastolic 73–124; PULSE 62–97; RESP 13–35; TEMP 36.3–37.1; O2SAT 96–100; BMI 21.4
--- NOTE | 2024-08-01 04:21 | PC.NURSE ---
Pt opening eyes tactile and auditory stimuli, mumbling words but unclear what she is saying, unable to answer questions or follow commands. Vital signs stable, 100% on room air, no respiratory distress. HR 78, RR 18, BP 135/98. Turned self side to side and pulled arm away to avoid blood draw from lab.
[2024-08-01 05:05] LABS: Basophils % 0.4 %; Eosinophils # 0.1 10^3/uL (0.0-0.8); Eosinophils % 1.3 %; Hematocrit 40.4 % (36-47); Lymphocytes # 2.6 10^3/uL (0.8-4.8); Lymphocytes % 34.8 %; Mean Corpuscular HGB Conc 31.7 g/dL (30-55); Mean Corpuscular Hemoglobin 27.4 pg (27-33); Mean Corpuscular Volume 86.5 fl (85-98); Mean Platelet Volume 10.3 fL (7.4-10.4); Monocytes # 0.7 10^3/uL (0.2-0.9); Monocytes % 8.7 %; Neutrophils # 4.11 10^3/uL (1.8-7.7); Neutrophils % 54.7 %; Nucleated Red Blood Cells % 0 %; Platelet Count 279 10^3/cmm (157-399); Red Blood Count 4.67 10^6/uL (3.85-5.65); Red Cell Distribution Width 13.9 % (12.1-15.1); White Blood Count 7.51 10^3/uL (3.29-11.43)
[2024-08-01 05:10] LABS: INR 1.05 (0.8-1.2)
[2024-08-01 05:26] LABS: Alanine Aminotransferase 10 U/L (0-33); Alkaline Phosphatase 75 U/L (35-105); Anion Gap 11.8 (5-19); Aspartate Amino Transferase 14 U/L (0-32); Blood Urea Nitrogen 10 mg/dL (6-20); Calcium 8.8 mg/dL (8.5-10.5); Carbon Dioxide 29 mmol/L (22-29); Chloride 104 mmol/L (98-107); Globulin 2.8 g/dL (1.3-4.6); Glomerular Filtration Rate 84.8 mL/min (90-130); Glucose 119 mg/dL (65-115); Osmolality Calculated 292 mOsm/kg (285-295); Potassium 3.8 mmol/L (3.5-5.1); Sodium 141 mmol/L (136-145); Thyroid Stimulating Hormone 3.79 uIU/mL (0.27-4.20); Total Bilirubin 0.3 mg/dL (0.15-1.2); Total Protein 6.8 g/dL (6.6-8.7)
--- NOTE | 2024-08-01 06:36 | P.HP_ITS ---
Providers/Chief Complaint 2 Admitting Physician: Elizabeth Barber MD Primary Care Provider: SONIDO Cervantes Chief Complaint: unresponsive OD? History of Present Illness Maxine Puri is a 29 year old female who was brought to the emergency room today with her boyfriend after a suicide attempt in which she consumed multiple unknown tablets. She did message a picture of medications, however he does not know which medications she took exactly. Review of her medication list shows patient is on buspirone, fluoxetine, gabapentin. Her urine drug screen urine is positive for methamphetamines and marijuana. Alcohol level is negative. Upon initial arrival at the emergency room, patient was unresponsive. Narcan had no effect. At the time of this assessment patient is able to move all extremities, draws away from painful stimulus, does not allow labs to be drawn, states a few words like what upon being asked orientation questions but unable to have a full conversation. 96-hour hold has been placed in the emergency room Review of Systems 2 General: Reports: ROS unobtainable due to medical condition Medications/Allergies Home Medications Medication Instructions Recorded Confirmed Last Taken Type melatonin 1 tab PO BEDTIME PRN Sleep 07/31/20 04/05/24 07/30/20 History valerian root 1 tab PO BEDTIME PRN Sleep 07/31/20 04/05/24 Unknown History buspirone 30 mg tablet 30 mg PO BID 30 days #60 tabs 10/31/21 04/05/24 Unknown Rx chlorhexidine gluconate 0.12 % 15 ml buccal BID #473 mL 10/31/21 04/05/24 Unknown Rx mouthwash (Peridex) fluoxetine 40 mg capsule 40 mg PO DAILY #30 caps 10/31/21 04/05/24 Unknown Rx gabapentin 400 mg capsule 400 mg PO TID 30 days #90 caps 10/31/21 04/05/24 Unknown Rx pillow #1 ea 11/17/21 04/05/24 Unknown Rx dimethicone 1.2 %-colloidal See Rx Instructions topical 11/18/21 04/05/24 Unknown Rx oatmeal lotion (Aveeno Daily .COMPLEX #227 grams Moisturizing) trazodone 150 mg tablet 150 mg PO .hs 30 days #30 tabs 11/18/21 04/05/24 Unknown Rx ibuprofen 800 mg tablet 800 mg PO BID PRN post operative 11/27/21 04/05/24 Unknown Rx #60 tabs Allergies Allergy/AdvReac Type Severity Reaction Status Date / Time No Known Allergies Allergy Verified 04/05/24 11:10 PFSH Acute 2 PFSH: Medical History Insomnia Methamphetamine dependence in remission Alcohol abuse Cannabis abuse Thoracic scoliosis Anxiety Chronic back pain greater than 3 months duration Surgical History No history of previous surgery Family History Denies family history of Hyperlipidemia Hypertension Social History Smoking and tobacco/nicotine status: former use of tobacco/nicotine Vitals/I&O/Wt Last Vital Signs Temp 97.3 F L 08/01/24 04:00 Pulse 70 08/01/24 06:00 Resp 19 H 08/01/24 06:00 BP 139/96 08/01/24 06:00 Pulse Ox 99 08/01/24 06:00 O2 Del Method Room Air 08/01/24 06:00 07/31/24 07/31/24 08/01/24 14:59 22:59 06:59 Output Total 450 / 450 Balance -450 / -450 Weight last 48 hrs Weight 58.5 kg Weight 58.5 kg Weight 56.699 kg Physical Exam 2 Narrative: General: No acute distress, AO x1 HEENT: PERRLA, pupils bilaterally equal and reactive, pallors not present Chest: Normal vesicular breath sounds, no added sounds, equal good air entry bilaterally CVS: S1-S2 regular, no murmurs, no tachycardia, no gallops, no rubs Abdomen: Soft, nontender, no organomegaly, bowel sounds present Neuro: No focal deficits, no facial deformity, AO x1, moves all extremities while laying in bed Urinary Catheter Management: Jones: Cath Placed During This Visit: yes Reason for Continuing Indwelling Catheter: Accurate Measurement of Urinary Output in Critically Ill Patients Urinary Catheter Date of Insertion: 07/31/24 Data 08/01/24 04:18 08/01/24 04:18 A&P Assessment and plan (1) Suicide attempt by multiple drug overdose: (2) Methamphetamine abuse: (3) Cannabis abuse: Plan Patient brought to the emergency room today with chief complaints of attempted suicide by consumption of multiple pills that she had at home. Uncertain which pills the patient took exactly, however there is buspirone, fluoxetine and gabapentin on her home medication list which may have been potentially involved. History is provided mainly by talking to the ER physician, patient herself is unable to participate in an extended conversation at this time. Urine drug screen also positive for methamphetamines and cannabis. Poison control has been contacted Recommend careful observation with cardiac and neurological monitoring. Assess for any arrhythmias seizures or other worsening mentation. On initial arrival to the emergency room patient was unresponsive. There was no response to Narcan. At the time of this assessment she is able to turn sides, states a few words though out of context, withdraws from painful stimulus, does not cooperate with obtaining blood gases IV hydration normal saline 75 cc an hour. As needed Tylenol for pain if needed Monitor in the ICU 96-hour hold placed in the emergency room Once more awake and alert, obtain psychiatry assessment DVT prophylaxis: SCDs, low risk of DVT Beta-hCG negative Full code Attestations 2 Medical Necessity Statement*: Greater than 2 midnight stay is anticipated for monitoring of drug overdose, psychiatry assessment for suicide attempt Coding Level of Care Code Acute Code for Chg Fwd High MDM includes number and complexity of problems actively addressed during encounter, amount and/or complexity of data reviewed/ordered and described risk of complication, morbidity or mortality of management as documented Diagnoses Suicide attempt by multiple drug overdose T50.912A Methamphetamine abuse F15.10 Cannabis abuse F12.10
[2024-08-01] MEDS: sodium chloride 0.9% 1,000 ML 75 ML IV (08:07)
[2024-08-01] MEDS: cefTRIAXone 1,000 mg SDV 1000 MG IVP (08:58)
--- NOTE | 2024-08-01 09:11 | PC.PHAR ---
I called all her pharmacies listed, no one has records of any medications. no external med list and all meds on our database are old rx's im going to remove these as i cannot verify that they are current meds buspirone 30 mg bid fluoxetine 40mg wd gabapentin 400mg tid trazodone 150mg qpm
[2024-08-01 12:25] LABS: Procalcitonin 0.04 ng/mL (0-0.5)
--- NOTE | 2024-08-01 12:29 | PC.NURSE ---
Patient transferred to NPU with House sup and security at 1225. All IVs removed, and escamilla removed prior to transfer. Poison control cleared patient.
--- NOTE | 2024-08-01 12:38 | PC.NURSE ---
Pt transported to NPU with assistance of [facility] cra officer Lucas @[phone]. No verbalized needs or complaints. Pt calm, and pleasant during transfer.
--- NOTE | 2024-08-01 14:40 | P.PN_ITS ---
Subjective 2 Subjective: Patient was seen this morning, she is alert to person, to place, she follows commands, she easily becomes agitated that she wants to be left alone she tells me, she is moving bilateral upper lower extremities, she denies any pain complaints, no chest pain, no shortness of breath, she is adverse to answering any more questions, keeps easily becoming agitated, yelling at me that she wants to be left alone and she does not want to answer any more questions, refusing to be examined Vitals/I&O/Wt Last Vital Signs Temp 97.7 F 08/01/24 12:32 Pulse 96 08/01/24 12:32 Resp 14 08/01/24 12:32 BP 116/80 08/01/24 12:32 Pulse Ox 99 08/01/24 12:32 O2 Del Method Room Air 08/01/24 12:36 07/31/24 08/01/24 08/01/24 22:59 06:59 14:59 Intake Total 1000 / 1000 Output Total 450 / 450 Balance -450 / -450 1000 / 1000 Weight last 48 hrs Weight 58.5 kg Weight 58.5 kg Weight 56.699 kg Physical Exam 2 Const: COMMON NORMALS: no acute distress ORIENTATION/CONSCIOUSNESS: Yes awake, Yes oriented to person and Yes oriented to place Resp: COMMON NORMALS: normal respiratory effort, No retractions, No use of accessory muscles and clear to auscultation bilaterally AUSCULTATION: clear to auscultation bilaterally Cardio: COMMON NORMALS: regular rate, regular rhythm, S1 normal heart sound present and S2 normal heart sound present RATE: regular rate RHYTHM: r egular rhythm HEART SOUNDS: S1 normal heart sound present and S2 normal heart sound present GI: COMMON NORMALS: Normal to inspection, nondistended, normoactive bowel sounds present and non-tender Extremity: COMMON NORMALS: no pedal edema NARRATIVE EXTREMITY EXAM: scab seen on left foot Neuro: SENSORIUM/ORIENTATION: Yes oriented to person and Yes oriented to place Psych: COMMON NORMALS: mental status grossly normal Urinary Catheter Management: Jones: Cath Placed During This Visit: yes, but has since been removed by the nurse Reason for Continuing Indwelling Catheter: Decision to DC Catheter Urinary Catheter Date of Insertion: 07/31/24 Date Urinary Catheter Removed: 08/01/24 Time Urinary Catheter Discontinued: 12:25 Data 08/01/24 04:18 08/01/24 04:18 A&P Assessment and plan (1) Suicide attempt by multiple drug overdose: (2) Methamphetamine abuse: (3) Cannabis abuse: Plan Patient brought to the emergency room today with chief complaints of attempted suicide by consumption of multiple pills that she had at home. Uncertain which pills the patient took exactly, however there is buspirone, fluoxetine and gabapentin on her home medication list which may have been potentially involved. Urine drug screen also positive for methamphetamines and cannabis. Poison control has been contacted IV hydration normal saline 75 cc an hour. Stopped As UTI 1 dose Rocephin switched to cefdinir As needed Tylenol for pain if needed Will moved to n.p.o. 96-hour hold placed in the emergency room Psychiatry to see EKG to check QTc DVT prophylaxis: SCDs, low risk of DVT Beta-hCG negative Full code Attestations 2 Medical Necessity Statement*: Patient requires hospitalization for suicide attempt Diagnoses Suicide attempt by multiple drug overdose T50.912A Methamphetamine abuse F15.10 Cannabis abuse F12.10
--- NOTE | 2024-08-01 15:56 | ECG_ITS ---
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 Measurements Intervals [place] Rate: 66 P: 76 MD: 144 QRS: 84 QRSD: 97 T: 61 QT: 384 QTc: 403 Interpretive Statements SINUS RHYTHM WITH SINUS ARRHYTHMIA Compared to ECG 07/31/2024 21:50:33 Sinus tachycardia no longer present Atrial abnormality no longer present T-wave abnormality no longer present Possible ischemia no longer present Electronically Signed On 08-02-2024 19:10:36 TANYARD WORKER by Mell Mata M.D. [id number]
[2024-08-01] MEDS: nicotine 2 mg Gum BUCCAL (17:43)
[2024-08-01] MEDS: ibuprofen 600 mg Tablet PO (20:30)
[2024-08-01] MEDS: hyDROXYzine 25 mg Capsule 50 MG PO (20:32)
[2024-08-01] MEDS: trazodone 50 mg Tablet PO (20:32)
[2024-08-02 06:00] VITALS: BP 134/85; PULSE 72; RESP 16; TEMP 36.6; O2SAT 97
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
[2024-08-02 08:59] LABS: Alanine Aminotransferase 10 U/L (0-33); Albumin Level 3.2 g/dL (3.5-5.2); Alkaline Phosphatase 60 U/L (35-105); Aspartate Amino Transferase 15 U/L (0-32); Blood Urea Nitrogen 12 mg/dL (6-20); Calcium 8.9 mg/dL (8.5-10.5); Carbon Dioxide 21 mmol/L (22-29); Chloride 107 mmol/L (98-107); Globulin 2.5 g/dL (1.3-4.6); Glomerular Filtration Rate 84.8 mL/min (90-130); Glucose 122 mg/dL (65-115); Osmolality Calculated 285 mOsm/kg (285-295); Sodium 137 mmol/L (136-145); Total Bilirubin 0.3 mg/dL (0.15-1.2); Total Protein 5.7 g/dL (6.6-8.7)
[2024-08-02 09:02] LABS: Anion Gap 12.7 (5-19); Potassium 3.7 mmol/L (3.5-5.1)
[2024-08-02] MEDS: cefdinir 300 MG CAPSULE PO ×2 (09:18→17:45)
[2024-08-02] MEDS: pantoprazole DR 40 mg Tablet PO (09:18)
[2024-08-02 09:37] LABS: Basophils # 0.1 10^3/uL (0.0-0.1); Basophils % 0.8 %; Eosinophils # 0.1 10^3/uL (0.0-0.8); Eosinophils % 1.7 %; Hematocrit 39.8 % (36-47); Lymphocytes # 2.3 10^3/uL (0.8-4.8); Lymphocytes % 38.6 %; Mean Corpuscular HGB Conc 30.9 g/dL (30-55); Mean Corpuscular Volume 90.5 fl (85-98); Monocytes # 0.5 10^3/uL (0.2-0.9); Monocytes % 8.1 %; Neutrophils # 2.98 10^3/uL (1.8-7.7); Neutrophils % 50.5 %; Nucleated Red Blood Cells % 0 %; Platelet Count 226 10^3/cmm (157-399); White Blood Count 5.91 10^3/uL (3.29-11.43)
[2024-08-02 14:00] VITALS: BP 108/71; PULSE 71; RESP 18; TEMP 36.7; O2SAT 98
[2024-08-02 19:42] VITALS: BP 125/82; PULSE 86; RESP 18; TEMP 36.8; O2SAT 97
[2024-08-02] MEDS: quetiapine 100 mg Tablet PO (20:56)
[2024-08-03 06:00] VITALS: BP 121/75; PULSE 69; RESP 18; TEMP 36.9; O2SAT 98
--- NOTE | 2024-08-03 07:45 | PC.NURSE ---
Morning assessment Patient denies SI, HI, AVH, depression and anxiety during morning assessment. Patient encouraged to notify patient of any questions/concerns/needs. Patient verbalized understanding.
[2024-08-03] MEDS: cefdinir 300 MG CAPSULE PO ×2 (09:24→17:46)
[2024-08-03] MEDS: pantoprazole DR 40 mg Tablet PO (09:24)
[2024-08-03] MEDS: fluoxetine 20 mg Capsule PO (09:24)
--- NOTE | 2024-08-03 13:17 | W.PM.NPUPNS ---
Subjective NPU Subjective: 29-year-old female admitted after overdose on multiple medications. The patient had reported improved mood. She had stated that she had been simply wanting to get help with managing her pain and stated having taken too many muscle relaxants. Patient was compliant on the milieu. She had been encouraged to engage in activities of daily living. She had been able to report improved sleep. She had reported adequate energy and reported improving appetite. The patient had reported a previous history of depression but reported that she had not been suicidal. She reported that she felt less confused today. Mental Status Exam MSE Comments: The patient is a thin white female with a disheveled appearance and poor hygiene. There was some increase in psychomotor activity with presence of psychomotor agitation. Her speech was productive with normal rate and normal volume. There was no evidence of any abnormal involuntary motor movements or tics appreciated. Her mood was described as better. Her affect was appeared odd and subdued. Her thought process was linear today. She did not appear to be responding to internal stimuli. She denied any homicidal or suicidal ideation. There was no evidence of delusional thinking. Her attention span appeared improved. She was alert and oriented x3 today. Her insight is impaired. Her judgment was poor. Her impulse control appeared poor. Vitals/I&O/Wt Last Vital Signs Temp 98.4 F 08/03/24 06:00 Pulse 69 08/03/24 06:00 Resp 18 08/03/24 06:00 BP 121/75 08/03/24 06:00 Pulse Ox 98 08/03/24 06:00 O2 Del Method Room Air 08/03/24 06:00 08/02/24 08/03/24 08/03/24 22:59 06:59 14:59 Intake Total 480 / 1360 Balance 480 / 910 Physical Exam Urinary Catheter Management: Jones: Cath Placed During This Visit: yes, but has since been removed by the nurse Reason for Continuing Indwelling Catheter: Decision to DC Catheter Urinary Catheter Date of Insertion: 07/31/24 Date Urinary Catheter Removed: 08/01/24 Time Urinary Catheter Discontinued: 12:25 Data NPU 08/02/24 09:05 08/02/24 08:26 Micro: Microbiology 07/31/24 22:10 Urine Culture - Final Urine,Clean Catch Microbiology 07/31/24 22:10 Urine,Clean Catch Urine Culture - Final A&P Assessment and plan (1) Depressive disorder, not elsewhere classified: (2) Methamphetamine abuse: (3) Suicide attempt by multiple drug overdose: (4) Cannabis abuse: Plan 29-year-old female with history of PTSD, depression, and polysubstance abuse admitted after overdosing on a myriad of medications currently denying suicidal intent. Patient would likely continue to benefit from inpatient psychiatric hospitalization and may benefit from inpatient substance abuse treatment as well. #1.? Engage patient in individual milieu and group therapy. #2?? Recommend sober living treatment at the highest level of care to which the patient is willing to commit #3???Continue Prozac 20mg daily. #4?? TO-15 minute checks? #5?? Will attempt to gather collateral information Involuntary Hold Information 96 Hour Hold: 96 Hour Involuntary Admission: Yes 96 Hour Hold Ending Date: 08/08/24 96 Hour Hold Ending Time: 22:00 Other Hold: Hold End Date: 08/07/24 Attestations NPU Medical Necessity Statement*: Inpatient hospitalization is medically necessary and deemed to ?be ?the clinically appropriate intervention ?at this time.? We will monitor/initiate medications and make changes as indicated.? The patient?s likely length of stay 2-3 days. Coding Level of Care Code Acute Code for [facility] Fwd Diagnoses Depressive disorder, not elsewhere classified F32.89 Methamphetamine abuse F15.10 Suicide attempt by multiple drug overdose T50.912A Cannabis abuse F12.10
[2024-08-03 14:00] VITALS: BP 130/80; PULSE 72; RESP 18; TEMP 37.3; O2SAT 99
[2024-08-03] MEDS: nicotine 2 mg Gum BUCCAL (16:50)
[2024-08-03 20:17] VITALS: BP 134/83; PULSE 82; RESP 16; TEMP 36.8; O2SAT 98
[2024-08-03] MEDS: quetiapine 100 mg Tablet PO (21:17)
[2024-08-03] MEDS: trazodone 50 mg Tablet PO (21:17)
[2024-08-04 06:00] VITALS: BP 135/87; PULSE 74; RESP 16; TEMP 36.7; O2SAT 99
[2024-08-04] MEDS: cefdinir 300 MG CAPSULE PO (08:35)
[2024-08-04] MEDS: pantoprazole DR 40 mg Tablet PO (08:35)
[2024-08-04] MEDS: fluoxetine 20 mg Capsule PO (08:35)
[2024-08-04] MEDS: nicotine 2 mg Gum BUCCAL ×2 (08:53→11:04)
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
[2024-08-04 11:09] VITALS: BP 135/87; PULSE 74; RESP 16; TEMP 36.6; O2SAT 99
== END 2024-08-04 12:09 | disposition home or self-care (01) | DRG 918 ==
LOC: ER 23:06 → ICU 23:16 → NP 08-01 12:28
PROVIDERS: Admitting Provider Student in an Organized Health Care Education/Training Program; Emergency Provider Emergency Medicine; PCP Nurse Practitioner Family; Visit Provider Family Medicine
DX: T50.912A Poisoning by multiple unspecified drugs, medicaments and biological substances, intentional self-harm, initial encounter (principal); F15.10 Other stimulant abuse, uncomplicated; F12.10 Cannabis abuse, uncomplicated; F32.A Depression, unspecified; F43.10 Post-traumatic stress disorder, unspecified; Y92.009 Unspecified place in unspecified non-institutional (private) residence as the place of occurrence of the external cause; Z87.891 Personal history of nicotine dependence; Z91.410 Personal history of adult physical and sexual abuse; Z62.810 Personal history of physical and sexual abuse in childhood
CPT/HCPCS: 36415; 51702; 80053; 80306; 80307; 81001; 81025; 83605; 84145; 84443; 85025; 85610; 86140; 87086; 93005; 96374; 97165; 99285; J0696; J2310; J7030

== ENCOUNTER 2025-05-24 16:15 | Emergency (ER) | payer MEDICAID, SELFPAY ==
[2025-05-24 16:20] VITALS: BP 189/107; PULSE 79; TEMP 36.7; O2SAT 99
--- OUTSIDE RECORDS SUMMARY | 2025-05-24 16:20 | XMS_ITS | Encounter Summary ---
Author Organization [facility] Address [address] [place] [address] Care Team Providers Care Teacher Aide Clerical Name Role Phone Unavailable Primary Care Provider Unavailabl e Encounter Details Date Type Department Care Team (Latest Contact Info) Description 05/09/1999 Outpatient Historical [facility] Medicine [address] [phone] Lizet Pantoja MD [address] [place] [phone] Routine child health exam (Primary Dx) Social History Tobacco Use Types Packs/Day Years Used Date Smoking Tobacco: Never Assessed Comments Unknown Sex and Gender Information Value Date Recorded Sex Assigned at Not on file 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
--- OUTSIDE RECORDS SUMMARY | 2025-05-24 16:21 | XMS_ITS | Encounter Summary ---
Author Organization [facility] Address [address] [place] [address] Care Team Providers Care Truck Crane Operator Name Role Phone Unavailable Primary Care Provider Unavailabl e Encounter Details Date Type Department Care Team (Late st Contact Info) Description 05/25/2000 Outpatient Historical [facility] Medicine [address] [phone] Lizet Pantoja MD [address] [place] [phone] Social History Tobacco Use Types Packs/Day Years Used Date Smoking Tobacco: Never Assessed Comments Unknown Sex and Gender Information Value Date Recorded Sex Assigned at Not on file 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
--- OUTSIDE RECORDS SUMMARY | 2025-05-24 16:21 | XMS_ITS | Clinical Summary ---
Author Organization [facility] Address [address] Cox: Epic Prelude ADT [place] [address] Care Team Providers Care Transcription Typist Name Role Phone Unavailable Primary Care Provider Unavailabl e Allergies Active Allergy Reactions Criticality Noted Date Comments Penicillins Hives High 01/26/2013 Medications HYDROcodone-ladi taminophen (NORCO) 5-325 mg tablet Take 1 Tablet by mouth every 4 hours as needed for Pain, Moderate. 0 Active ondansetron (ZOFRAN) 4 mg Tablet Take 1 Tablet (4 mg) by mouth every 8 hours as needed for Nausea/Emesis. 10 Tablet 0 0 Active naloxone (NARCAN) 4 mg/spray [place], Non-Aerosol EMERGENCY USE ONLY: Administer 1 spray (4 mg) in one nostril one time. May repeat in alternating nostrils every 2-3 min until responsive or EMS arrives. 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 Gender Identity Not on file Sexual Orientation Not on file Last Filed Vital Signs Vital Sign Reading Time Taken Comments Blood Pressure 141/96 05/14/2021 8:20 AM CDT Pulse - - Temperature 36.1 C (97 F) 05/14/2021 7:33 AM CDT Respiratory Rate 15 05/14/2021 8:20 AM CDT Oxygen Saturation 97% 05/14/2021 8:20 AM CDT Inhaled Oxygen Concentration - - Weight 51.3 kg (113 lb) 05/14/2021 7:33 AM CDT Height 165.1 cm (5' 5 ) 05/14/2021 7:33 AM CDT Body Mass Index 18.8 05/14/2021 7:33 AM CDT Plan of Treatment Health Maintenance Due Date Last Done Comments HEPATITIS B VACCINES (1 of 3 - 19+ 3-dose series) 02/05 HPV/Cotest (21-29) 2016 DTAP/TDAP/TD VACCINES (2 - Td or Tdap) 02/12/2019 HPV VACCINES (1 - 3-dose SCDM series) 2022 CERVICAL CANCER SCREENING 2025 HPV/Cotest (30-65) 2025 PAP SMEAR 2025 INFLUENZA VACCINE (#1) 2025 Insurance [facility] [id number]
--- OUTSIDE RECORDS SUMMARY | 2025-05-24 16:21 | XMS_ITS | Encounter Summary ---
Author Organization [facility] Address [address] [place] [address] Care Team Providers Care Chief Solution Architect Name Role Phone Unavailable Primary Care Provider Unavailabl e Encounter Details Date Type Department Care Team (Late st Contact Info) Description 03/22/2001 Outpatient Historical [facility] Medicine [place] [address] [phone] Jignesh Martinez MD [address] [phone] Social History Tobacco Use Types Packs/Day Years Used Date Smoking Tobacco: Never Assessed Comments Unknown Sex and Gender Information Value Date Recorded Sex Assigned at Not on file 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
--- OUTSIDE RECORDS SUMMARY | 2025-05-24 16:21 | XMS_ITS | Encounter Summary ---
Author Organization [facility] Address [address] [place] [address] Care Team Providers Care Linux Systems Engineer Name Role Phone Unavailable Primary Care Provider Unavailabl e Encounter Details Date Type Department Care Team (Latest Contact Info) Description 04/09/1999 Outpatient Historical [facility] Medicine [address] [phone] [place] [address] [place] [phone] Unspecified otitis media (Primary Dx); Other general medical examination for administrative purposes Social History Tobacco Use Types Packs/Day Years Used Date Smoking Tobacco: Never Assessed Comments Unknown Sex and Gender Information Value Date Recorded Sex Assigned at Not on file 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
--- OUTSIDE RECORDS SUMMARY | 2025-05-24 16:21 | XMS_ITS | Encounter Summary ---
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
--- OUTSIDE RECORDS SUMMARY | 2025-05-24 16:21 | XMS_ITS | Encounter Summary ---
Author Organization [facility] Address [address] [place] [address] Care Team Providers Care Teacher Counselor Name Role Phone Unavailable Primary Care Provider Unavailabl e Encounter Details Date Type Department Care Team (Latest Contact Info) Description 11/19/2003 Outpatient [facility] Family Medicine [address] [phone] Denia Pickard, JEANNE NO ADDRESS ON FILE ACUTE PHARYNGITIS (Primary Dx); ACUTE URI NOS Social History Tobacco Use Types Packs/Day Years Used Date Smoking Tobacco: Never Assessed Comments Unknown Sex and Gender Information Value Date Recorded Sex Assigned at Not on file 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
--- OUTSIDE RECORDS SUMMARY | 2025-05-24 16:21 | XMS_ITS | Clinical Summary ---
Author Organization [facility] Address [address] [place] [address] Care Team Providers Care Waste Management Recycling Technician Name Role Phone Unavailable Primary Care Provider Unavailabl e Allergies Active Allergy Reactions Criticality Noted Date Comments Penicillins Hives High 01/26/2013 Medications venlafaxine SR 24 hour (EFFEXOR XR) 75 mg Oral capsule Take 75 mg by mouth daily. Active divalproex delayed release (DEPAKOTE) 500 mg Oral TbEC Take 500 mg by mouth 3 times daily. Active traZODone (DESYREL) 100 mg Oral tablet Take 100 mg by mouth daily at bedtime. Active chlorhexidine gluconate 0.12 % MM Mwsh 15 mL by Mouth/Throat route 2 times daily. 473 mL 0 3 Active oxyCODONE-aceta minophen (PERCOCET) 5-325 mg Oral tablet Take 1 Tab by mouth every 4 hours as needed for Pain, Moderate. 30 Tab 0 3 Active ibuprofen (MOTRIN) 800 mg Oral tablet Take 1 Tab by mouth every 6 hours as needed for Pain, Mild. 21 Tab 0 3 Active HYDROcodone-ladi taminophen (NORCO) 5-325 mg tablet Take 1 Tablet by mouth every 4 hours as needed for Pain, Moderate. Active naloxone (NARCAN) 4 mg/spray [place], Non-Aerosol EMERGENCY USE ONLY: Administer 1 spray (4 mg) in one nostril one time. May repeat in alternating nostrils every 2-3 min until responsive or EMS arrives. 2 Each 3 0 Active ondansetron (Zofran) 4 mg Tablet Take 1 Tablet (4 mg) by mouth every 8 hours as needed for Nausea/Emesis. 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 Gender Identity Not on file Sexual Orientation Not on file Last Filed Vital Signs Vital Sign Reading Time Taken Comments Blood Pressure 136/90 2020 4:23 PM CDT Pulse 70 02/01/2013 7:27 AM CDT Temperature 36.3 C (97.4 F) 2020 2:55 PM CDT Respiratory Rate 20 2020 4:23 PM CDT Oxygen Saturation 100% 2020 4:23 PM CDT Inhaled Oxygen Concentration - - Weight 47.6 kg (105 lb) 2020 2:55 PM CDT Height 165.1 cm (5' 5 ) 2020 2:55 PM CDT Body Mass Index 17.47 2020 2:55 PM CDT Plan of Treatment Health Maintenance Due Date Last Done Comments HEPATITIS B VACCINES (1 of 3 - 19+ 3-dose series) 02/05 HPV/Cotest (21-29) 2016 DTAP/TDAP/TD VACCINES (2 - Td or Tdap) 02/12/2019 HPV VACCINES (1 - 3-dose SCDM series) 2022 CERVICAL CANCER SCREENING 2025 HPV/Cotest (30-65) 2025 PAP SMEAR 2025 INFLUENZA VACCINE (#1) 2025 Insurance JOHN DOMINGUEZ [id number] [facility] JOHN DOMINGUEZ [id number]
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
--- OUTSIDE RECORDS SUMMARY | 2025-05-24 16:21 | XMS_ITS | Encounter Summary ---
Author Organization [facility] Address [address] [place] [address] Care Team Providers Care Director Digital Sales Name Role Phone Unavailable Primary Care Provider Unavailabl e Encounter Details Date Type Department Care Team (Latest Contact Info) Description 01/11/[address] 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
--- OUTSIDE RECORDS SUMMARY | 2025-05-24 16:21 | XMS_ITS | Encounter Summary ---
Author Organization [facility] Address [address] [place] [address] Care Team Providers Care Retail Banking Manager Name Role Phone Unavailable Primary Care Provider Unavailabl e Encounter Details Date Type Department Care Team (Latest Contact Info) Description 02/15/2002 Outpatient Historical [facility] Family Medicine [address] [phone] Denia Pickard, WARD MAID NO ADDRESS ON FILE HEMATURIA (Primary Dx) Social History Tobacco Use Types Packs/Day Years Used Date Smoking Tobacco: Never Assessed Comments Unknown Sex and Gender Information Value Date Recorded Sex Assigned at Not on file 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
--- OUTSIDE RECORDS SUMMARY | 2025-05-24 16:21 | XMS_ITS | Encounter Summary ---
Author Organization [facility] Address [address] [place] [address] Care Team Providers Care Floor Polisher Name Role Phone Unavailable Primary Care Provider Unavailabl e Encounter Details Date Type Department Care Team (Latest Contact Info) Description 12/28/2001 Outpatient [facility] Medicine [address] [phone] Denia Pickard, JEANNE NO ADDRESS ON FILE URIN TRACT INFECTION NOS (Primary Dx); DERMATITIS NOS Social History Tobacco Use Types Packs/Day Years Used Date Smoking Tobacco: Never Assessed Comments Unknown Sex and Gender Information Value Date Recorded Sex Assigned at Not on file 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
--- OUTSIDE RECORDS SUMMARY | 2025-05-24 16:21 | XMS_ITS | Encounter Summary ---
Author Organization [facility] Address [address] [facility] Attn: Epic Prelude ADT [place] [phone] Care Team Providers Care Vmware Architect Name Role Phone Unavailable Primary Care Provider Unavailabl e Encounter Details Date Type Department Care Team (Late st Contact Info) Description 02/16/2002 Outpatient Historical Denia Pickard, TRANSFER STATION OPERATOR NO ADDRESS ON FILE Social History Tobacco Use Types Packs/Day Years Used Date Smoking Tobacco: Never Assessed Comments Unknown Sex and Gender Information Value Date Recorded Sex Assigned at Not on file 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
--- OUTSIDE RECORDS SUMMARY | 2025-05-24 16:21 | XMS_ITS | Encounter Summary ---
Author Organization [facility] Address [address] [place] [address] Care Team Providers Care Juice Packaging Machines Setter Name Role Phone Unavailable Primary Care Provider Unavailabl e Encounter Details Date Type Department Care Team (Latest Contact Info) Description 02/01/[address] 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
--- OUTSIDE RECORDS SUMMARY | 2025-05-24 16:21 | XMS_ITS | Encounter Summary ---
Author Organization [facility] Address [address] [place] [address] Care Team Providers Care Translator And Interpreter Name Role Phone Unavailable Primary Care Provider Unavailabl e Encounter Details Date Type Department Care Team (Late st Contact Info) Description 01/26/2013 Ancillary Orders [facility] Oral and Maxillo Surgery[address] [place] [address] Ector Greer Jr., DMD NO ADDRESS ON FILE Unspecified anomaly of tooth position (Primary Dx) Social History Tobacco Use Types Packs/Day Years Used Date Smoking Tobacco: Never Alcohol Use Standard Drinks/Week Comments No 0 (1 standard drink = 0.6 oz pur e alcohol) Comments Unknown Sex and Gender Information Value Date Recorded Sex Assigned at Not on file 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
--- NOTE | 2025-05-24 17:10 | ED_ITS ---
HPI - Dental/Oral General: Chief complaint: Dental/Oral Stated complaint: R Back bottom tooth pain Time Seen by Provider: 05/24/25 17:06 History of Present Illness: Patient is 30-year-old female that presents to the emergency room due to dental pain. This has occurred in the last 3-4 days. She has not yet seen a dentist. Selected Entries 05/24/25 16:20 ED Triage Comment PT ARRIVES POV C/O L LOWER TOOTH VALERIA N X FEW DAYS. PT S TATES SHE HAD A FI LLING FALL OUT A W HILE AGO AND NOW H HAD INCREASED P AIN. DENIES SEEING DENTIST FOR IT. Associated symptoms: Denies fever(s) Related Data Previous Rx's ?Medication ?Instructions ?Recorded pillow #1 ea 11/17/21 fluoxetine 20 mg capsule 20 mg PO DAILY 30 days #30 c aps 08/03/24 fluoxetine 20 mg capsule (Prozac) 20 mg PO DAILY #30 c aps 08/04/24 quetiapine 100 mg tablet 100 mg PO BEDTIME 30 days #3 0 tabs 08/04/24 amoxicillin 500 mg capsule 500 mg PO BID 10 days #20 c aps 05/24/25 ibuprofen 800 mg tablet 800 mg PO TID PRN pain #30 t abs 05/24/25 Allergies Allergy/AdvReac Type Severity Reaction Status Date / Time No Known Allergies Allergy Verified 05/24/25 16:25 Review of Systems General: Reports: 10 or more systems reviewed and unremarkable except in HPI and below Const: Denies: fever(s) or chills Eyes: Denies: change in vision or blurry vision ENMT: Reports: mouth pain and dental pain; Denies: throat pain or uvular edema Card: Denies: chest pain or palpitations Resp: Denies: dyspnea GI: Reports: nausea; Denies: abdominal pain or vomiting : Denies: flank pain or difficulty voiding Musc: Denies: neck pain or back pain PFS ED PFSH: Medical History (Updated 05/24/25 @ 17:25 by OXANA Nath) Insomnia Methamphetamine dependence in remission Alcohol abuse Cannabis abuse Thoracic scoliosis Anxiety Chronic back pain greater than 3 months duration Surgical History No history of previous surgery Family History Denies family history of Hyperlipidemia Hypertension Social History Smoking and tobacco/nicotine status: former use of tobacco/nicotine Physical Exam Const: COMMON NORMALS: patient oriented x3 HENMT: COMMON NORMALS: normocephalic and atraumatic HEAD & SCALP: normocephalic and atraumatic MOUTH: lip normal and tongue normal TEETH & GINGIVA: Yes abnormal tooth and associated gingiva (Left posterior second molars is fractured anteriorly one third. Surroundin) THROAT: posterior oropharynx normal and uvula midline; tonsils not abnormal, no peritonsillar mass, posterior oropharynx not abnormal and no uvular edema OTHER: No trismus Neck/C-Spine: COMMON NORMALS: full ROM and no lymphadenopathy Lymph: LYMPHATIC: no lymphadenopathy noted Chest: COMMONS NORMALS: normal inspection of the chest and normal palpation of entire chest wall Resp: COMMON NORMALS: normal respiratory effort, No retractions and clear to auscultation bilaterally AUSCULTATION: clear to auscultation bilaterally Cardio: COMMON NORMALS: regular rate and regular rhythm RATE: regular rate RHYTHM: regular rhythm GI: COMMON NORMALS: Normal to inspection, nondistended, normoactive bowel sounds present, Soft to palpation and non-tender PALPATION: Yes Soft to palpation : COMMON NORMALS: Yes no CVA tenderness BLADDER/KIDNEY EXAM: Yes no CVA tenderness Back/Pelvis: COMMON NORMALS: no CVA tenderness and thoracic and lumbar spine normal to inspection Neuro: COMMON NORMALS: patient oriented x3 and CN's II-XII intact bilaterally Psych: COMMON NORMALS: mental status grossly normal, Normal thought process present and cooperative THOUGHT PROCESS: Normal thought process present Skin: COMMON NORMALS: no rashes or lesions noted, no wounds and turgor normal GENERAL SKIN EXAM: no rashes or lesions noted and turgor normal Course Vital Signs: Vital signs: Vital Signs Temperature 98.0 F 05/24/25 16:20 Pulse Rate 79 05/24/25 16:20 Blood Pressure 189/107 05/24/25 16:20 Pulse Oximetry 99 05/24/25 16:20 Oxygen Delivery Me thod Room Air 05/24/25 16:20 MDM - Dental/Oral Medical Decision Making Patient is 30-year-old female with dental fracture to back left bottom second molar presents with dental fracture for some time, however now pain the last?3 to 4 days. She stated she tried to call the dentist however became frustrated when she could not find her Medicaid card. She came to ED with increasing pain. Since we do not have dental services out of an emergency room, I have placed her on antibiotics and ibuprofen. I discussed this with patient. She has been using self care as sweet oil however this does not help. She has taken some ibuprofen and Tylenol which did seem to help. Patient will move forward with obtaining a dental appointment and take her antibiotics as directed. All radiology interpretation(s) finalized by discharge Discharge Plan Discharge Patient Disposition: Home Clinical Impression: Pain, dental, Impacted molar, Dental caries Fracture of tooth Qualifiers: Encounter type: initial encounter Fracture type: open Qualified Code(s): S02.5XXB - Fracture of tooth (traumatic), initial encounter for open fracture Condition: Stable Prescriptions: New ibuprofen 800 mg tablet 800 mg PO TID PRN (Reason: pain) Qty: 30 0RF amoxicillin 500 mg capsule 500 mg PO BID 10 Days Qty: 20 0RF No Action (DME) pillow See Rx Instructions .Route .MEDSUPPLY Qty: 1 0RF Rx Instructions: As directed fluoxetine 20 mg Capsule 20 mg PO DAILY 30 Days Qty: 30 1RF quetiapine 100 mg Tablet 100 mg PO BEDTIME 30 Days Qty: 30 1RF fluoxetine [Prozac] 20 mg capsule 20 mg PO DAILY Qty: 30 1RF Discharge Orders: Discharge ED (Routine); Ordered 05/24/25 Ordered By: Nelia Motley Referrals: Consuelo Aguayo FNP-C [Primary Care Provider, Family Practice] Discharge Diet: Soft Mechanical Discharge Activity: Resume usual activity Patient Instructions: Dental Caries (Cavities), Patient Portal & Cristhian Instructions Activity Restrictions/Additional Instructions: - Please call your dentist early in the morning, set an alarm to make an appointment as soon as possible -We are unable to provide any type of dental services out of the ER - Take your antibiotics as directed - Utilize a probiotic or active culture yogurt daily to avoid infectious diarrhea associated with taking antibiotics -Return to ED if you cannot open your mouth, have swelling on that side of your mouth, or temperature greater than 100.4 ?F. Print Language: Afghan Coding Level of Care Code ED Medical Logistics Specialist for Karina Best
== END 2025-05-24 17:36 | disposition home or self-care (01) ==
PROVIDERS: Emergency Provider Physician Assistant; PCP Nurse Practitioner Family
DX: S02.5XXB Fracture of tooth (traumatic), initial encounter for open fracture (principal); K01.1 Impacted teeth; K02.9 Dental caries, unspecified; K08.89 Other specified disorders of teeth and supporting structures; Z87.891 Personal history of nicotine dependence; X58.XXXA Exposure to other specified factors, initial encounter
CPT/HCPCS: 99283

== ENCOUNTER 2025-07-20 15:12 | Emergency (ER) | payer MEDICAID, SELFPAY ==
[2025-07-20 15:19] VITALS: BP 146/90; PULSE 70; RESP 17; TEMP 36.8; O2SAT 98; BMI 21.6
--- NOTE | 2025-07-20 15:43 | ED_ITS ---
Documented by User: OXANA Valles 07/20/25 18:47 HPI - Abdominal Pain 2 General: Chief Complaint: Abdominal Pain Stated Complaint: ABDOMEN PAIN, BLOOD IN URINE Time Seen by Provider: 07/20/25 15:14 Source: patient Mode of arrival: other (law enforcement xfer) Limitations: no limitations History of Present Illness: Patient is a 30-year-old female who presents to the emergency department from skilled nursing for lower abdominal pain has been going on for last 2 days. States that she has a think she is 3 months as this was when her last normal menstrual cycle was. Reports some mild vaginal spotting, pain is primarily lower abdomen and feels like cramping. No urinary symptoms does report some nausea but no vomiting. No history of abdominal surgeries. No changes in bowel habits. Her vitals are stable at this time she is nontoxic-appearing. She has not tested herself for at home. MD elicited complaint: abdominal pain Pertinent past history: none Onset (ago): day(s) Pain Consistency: constant Severity: mild Quality: cramping Context: other (poss ) Associated Symptoms: Reports GI cramping and nausea; Denies bloating, change in stool character, chills, constipation, diarrhea, dysuria, fever(s), hematochezia and vomiting Related Data Previous Rx's ?Medication ?Instructions ?Recorded pillow #1 ea 07/20/25 Allergies Allergy/AdvReac Type Severity Reaction Status Date / Time No Known Allergies Allergy Verified 07/20/25 10:58 Review of Systems 2 General: Reports: 10 or more systems reviewed and unremarkable except in HPI and below Const: Denies: fever(s), chills, change in appetite, change in weight or diaphoresis ENMT: Denies: throat pain or hoarseness Card: Denies: chest pain, palpitations or lightheadedness Resp: Denies: dyspnea, productive cough or wheezing GI: Reports: abdominal pain, nausea and GI cramping; Denies: vomiting, diarrhea, constipation, bloating, change in stool character or hematochezia : Reports: vaginal bleeding; Denies: flank pain, difficulty voiding, dysuria, urinary frequency or urinary urgency Musc: Denies: neck pain or back pain Skin/Breast: Denies: rash or new lesions Neuro: Denies: headache(s) or dizziness PFSH ED 2 PFSH: Medical History Insomnia Methamphetamine dependence in remission Alcohol abuse Cannabis abuse Thoracic scoliosis Anxiety Chronic back pain greater than 3 months duration Surgical History No history of previous surgery Family History Denies family history of Hyperlipidemia Hypertension Social History Smoking and tobacco/nicotine status: current some day tobacco/nicotine user Substance/Drug Use: current Physical Exam 2 Const: COMMON NORMALS: no acute distress, average body habitus, patient oriented x3, no limitations, healthy appearing, alert and well nourished G ENERAL APPEARANCE: cooperative and comfortable ORIENTATION/CONSCIOUSNESS: Yes awake Neck/C-Spine: COMMON NORMALS: full ROM, supple and no meningeal signs Resp: COMMON NORMALS: normal respiratory effort, No retractions, No use of accessory muscles and clear to auscultation bilaterally AUSCULTATION: clear to auscultation bilaterally, no crackles, no rales, no rhonchi and no wheezes Cardio: COMMON NORMALS: regular rate, regular rhythm, No gallops present (Cardio), No clicks present (Cardio), No murmurs present (Cardio) and No rub (Cardio) RATE: regular rate RHYTHM: regular rhythm GI: COMMON NORMALS: Soft to palpation, No hepatosplenomegaly present and no masses AUSCULTATION: Yes normoactive bowel sounds PALPATION: Yes Soft to palpation, Yes Tenderness to palpation present (GI) (mild lower), No Guarding due to palpation present (GI), No Rigid due to palpation and Yes No hepatosplenomegaly present RECTAL EXAM: deferred Extremity: COMMON NORMALS: normal to inspection and full ROM Neuro: COMMON NORMALS: patient oriented x3, moves all extremities, no focal motor deficits and no sensory deficits noted SENSORIUM/ORIENTATION: Yes alert MENINGEAL SIGNS: Yes no meningeal signs Psych: COMMON NORMALS: mental status grossly normal, cooperative and speech normal SPEECH: Yes normal speech Skin: COMMON NORMALS: no rashes or lesions noted GENERAL SKIN EXAM: no rashes or lesions noted Course 2 Vital Signs: Vital signs: Vital Signs Temperature 98.3 F 07/20/25 15:19 Pulse Rate 65 07/20/25 18:37 Respiratory Rate 17 07/20/25 15:19 Blood Pressure 155/102 07/20/25 18:37 Pulse Oximetry 100 07/20/25 18:37 Oxygen Delivery Me thod Room Air 07/20/25 15:19 MDM - Abdominal Pain Medical Decision Making Patient presented from skilled nursing for lower abdominal pain and nausea, this been going on for a while but worse over the past few days. States that she might be , her urine is positive and ultrasound evidence of single live intrauterine with sonographic age of 16 weeks and 4 days. However intrauterine size is small, so she will be established with OB for further evaluation. Rest of her workup was unremarkable, will be allowed discharge back to skilled nursing. Symptoms likely explained from her status of . Lab Data 07/20/25 15:56 07/20/25 15:56 Labs/Radiology: Radiology Impressions Obstetrics Ultrasound 07/20/25 16:46 IMPRESSION: 1. Single live intrauterine with a mean sonographic age of 16 weeks 4 days and estimated date of delivery of December 31, 2025. This corresponds to a clinical age of 22 weeks 3 days. measurements correspond to the 3rd percentile. Please correlate with accuracy of clinical dates. 2. Breech presentation. Laboratory Results WBC 8.58 10^3/uL (3.29-11.43) 07/20/25 15:56 RBC 4.18 10^6/uL (3.85-5.65) 07/20/25 15:56 Hgb 11.70 g/dL (11.27-16.99) 07/20/25 15:56 Hct 36.8 % (36-47) 07/20/25 15:56 MCV 88.0 fl (85-98) 07/20/25 15:56 MCH 28.0 pg (27-33) 07/20/25 15:56 MCHC 31.8 g/dL (30-55) 07/20/25 15:56 RDW 13.7 % (12.1-15.1) 07/20/25 15:56 Plt Count 257 10^3/cmm (157-399) 07/20/25 15:56 MPV 9.7 fL (7.4-10.4) 07/20/25 15:56 Neut % (Auto) 70.9 % 07/20/25 15:56 Lymph % (Auto) 21.6 % 07/20/25 15:56 Tift % (Auto) 6.4 % 07/20/25 15:56 Eos % (Auto) 0.3 % 07/20/25 15:56 Baso % (Auto) 0.2 % 07/20/25 15:56 Neut # (Auto) 6.08 10^3/uL (1.8-7.7) 07/20/25 15:56 Lymph # (Auto) 1.9 10^3/uL (0.8-4.8) 07/20/25 15:56 Tift # (Auto) 0.6 10^3/uL (0.2-0.9) 07/20/25 15:56 Eos # (Auto) 0.0 10^3/uL (0.0-0.8) 07/20/25 15:56 Baso # (Auto) 0.0 10^3/uL (0.0-0.1) 07/20/25 15:56 Nucleated RBC % (auto) 0 % 07/20/25 15:56 Nucleated RBCs # 0.0 /100WBC 07/20/25 15:56 Sodium 136 mmol/L (136-145) 07/20/25 15:56 Potassium 3.8 mmol/L (3.5-5.1) 07/20/25 15:56 Chloride 103 mmol/L (98-107) 07/20/25 15:56 Carbon Dioxide 24 mmol/L (22-29) 07/20/25 15:56 Anion Gap 12.8 (5-19) 07/20/25 15:56 BUN 9 mg/dL (6-20) 07/20/25 15:56 Creatinine 0.5 mg/dL (0.5-0.9) 07/20/25 15:56 GFR Calculation 144.9 mL/min (90-130) H 07/20/25 15:56 Glucose 102 mg/dL (65-115) 07/20/25 15:56 Calculated Osmolality 281 mOsm/kg (285-295) L 07/20/25 15:56 Calcium 8.9 mg/dL (8.5-10.5) 07/20/25 15:56 Total Bilirubin 0.2 mg/dL (0.15-1.2) 07/20/25 15:56 AST 14 U/L (0-32) 07/20/25 15:56 ALT 15 U/L (0-33) 07/20/25 15:56 Alkaline Phosphatase 51 U/L (35-105) 07/20/25 15:56 Total Protein 6.5 g/dL (6.6-8.7) L 07/20/25 15:56 Albumin 3.5 g/dL (3.5-5.2) 07/20/25 15:56 Globulin 3.0 g/dL (1.3-4.6) 07/20/25 15:56 HCG, Qual Positive (Negative) H 07/20/25 15:37 Urine Color Yellow (Yellow) 07/20/25 17:39 Urine Appearance Turbid (CLEAR) A 07/20/25 17:39 Urine pH 7.0 (5-7) 07/20/25 17:39 Ur Specific [place] 1.019 (1.005-1.030) 07/20/25 17:39 Urine Protein Negative (Negative) 07/20/25 17:39 Urine Glucose (UA) Negative (Normal) 07/20/25 17:39 Urine Ketones Negative (Negative) 07/20/25 17:39 Urine Blood Negative (Negative) 07/20/25 17:39 Urine Nitrate Negative (Negative) 07/20/25 17:39 Urine Bilirubin Negative (Negative) 07/20/25 17:39 Urine Urobilinogen 1.0 mg/dL (Negative) 07/20/25 17:39 Ur Leukocyte Esterase 1+ (Negative) A 07/20/25 17:39 Urine RBC 0-2 /hpf (0-2) 07/20/25 17:39 Urine WBC 21-50 /hpf (0-5) H 07/20/25 17:39 Ur Squamous Epith Cells 11-20 /hpf (0-5) H 07/20/25 17:39 Amorphous Sediment Not Reportable 07/20/25 17:39 Urine Bacteria Trace /hpf (NONE) 07/20/25 17:39 Hyaline Casts 1.21 /lpf 07/20/25 17:39 All radiology interpretation(s) finalized by discharge Discharge Plan Discharge Patient Disposition: Home Clinical Impression: Confirmed intrauterine on ultrasound Condition: Stable Prescriptions: No Action (DME) pillow See Rx Instructions .Route .MEDSUPPLY Qty: 1 0RF Rx Instructions: As directed Discharge Orders: Discharge ED (Routine); Ordered 07/20/25 Ordered By: Antonio Dasilva Referrals: Consuelo Aguayo FNP-C [Primary Care Provider, Family Practice] Patient Instructions: Patient Portal & Cristhian Instructions Activity Restrictions/Additional Instructions: Discharge Instructions You have been diagnosed with a healthy in your second trimester. You came to the emergency department with abdominal pain and nausea, and your evaluation did not show any urgent complications. It is important to continue regular care with your medical billing clerk. What to expect next: - Schedule and attend your next appointment with your medical billing clerk as soon as possible. Regular visits are important for your health and your baby?s health. - If you had any special findings on your ultrasound, your medical billing clerk may recommend additional follow-up or testing. When to seek medical attention: Call your doctor or return to the emergency department immediately if you experience: - Heavy vaginal bleeding (soaking more than one pad per hour) - Severe or worsening abdominal pain - Fever over 100.4?F (38?C) - Severe headache, vision changes, or sudden swelling of your hands, feet, or face - Persistent vomiting or inability to keep fluids down - Signs of labor (regular contractions, leaking fluid, or pressure in your pelvis) General care: - Take your vitamins as directed. - Stay hydrated and eat a balanced diet. - Avoid alcohol, tobacco, and any drugs not prescribed by your doctor. - Rest as needed and avoid heavy lifting. Follow-up: - You should be seen by your medical billing clerk within the next few days for ongoing care and monitoring. - If you have any questions or concerns before your appointment, contact your medical billing clerk?s office. Emotional health: It is normal to feel anxious or uncertain after an emergency visit. If you have concerns about your or emotional well-being, talk to your healthcare provider for support. Remember: Most abdominal pain and nausea in are not dangerous, but it is important to watch for warning signs and keep up with your care. Print Language: Albanian Coding Level of Care Code ED Yoke Setter for Chg Fwd Documented by User: Dylan Floyd DO 07/21/25 14:36 HPI - Abdominal Pain 2 General: Chief Complaint: Abdominal Pain Stated Complaint: ABDOMEN PAIN, BLOOD IN URINE Time Seen by Provider: 07/20/25 15:14 Related Data Previous Rx's ?Medication ?Instructions ?Recorded pillow #1 ea 07/20/25 Allergies Allergy/AdvReac Type Severity Reaction Status Date / Time No Known Allergies Allergy Verified 07/20/25 10:58 PFSH ED 2 PFSH: Medical History Insomnia Methamphetamine dependence in remission Alcohol abuse Cannabis abuse Thoracic scoliosis Anxiety Chronic back pain greater than 3 months duration Surgical History No history of previous surgery Family History Denies family history of Hyperlipidemia Hypertension Social History Smoking and tobacco/nicotine status: current some day tobacco/nicotine user Substance/Drug Use: current Course 2 Vital Signs: Vital signs: Vital Signs Temperature 98.3 F 07/20/25 15:19 Pulse Rate 65 07/20/25 18:37 Respiratory Rate 17 07/20/25 15:19 Blood Pressure 155/102 07/20/25 18:37 Pulse Oximetry 100 07/20/25 18:37 Oxygen Delivery Me thod Room Air 07/20/25 15:19 MDM - Abdominal Pain Medical Decision Making Patient presented from skilled nursing for lower abdominal pain and nausea, this been going on for a while but worse over the past few days. States that she might be , her urine is positive and ultrasound evidence of single live intrauterine with sonographic age of 16 weeks and 4 days. However intrauterine size is small, so she will be established with OB for further evaluation. Rest of her workup was unremarkable, will be allowed discharge back to skilled nursing. Symptoms likely explained from her status of . Chart reviewed Lab Data 07/20/25 15:56 07/20/25 15:56 Labs/Radiology: Radiology Impressions Obstetrics Ultrasound 07/20/25 16:46 IMPRESSION: 1. Single live intrauterine with a mean sonographic age of 16 weeks 4 days and estimated date of delivery of December 31, 2025. This corresponds to a clinical age of 22 weeks 3 days. measurements correspond to the 3rd percentile. Please correlate with accuracy of clinical dates. 2. Breech presentation. Laboratory Results WBC 8.58 10^3/uL (3.29-11.43) 07/20/25 15:56 RBC 4.18 10^6/uL (3.85-5.65) 07/20/25 15:56 Hgb 11.70 g/dL (11.27-16.99) 07/20/25 15:56 Hct 36.8 % (36-47) 07/20/25 15:56 MCV 88.0 fl (85-98) 07/20/25 15:56 MCH 28.0 pg (27-33) 07/20/25 15:56 MCHC 31.8 g/dL (30-55) 07/20/25 15:56 RDW 13.7 % (12.1-15.1) 07/20/25 15:56 Plt Count 257 10^3/cmm (157-399) 07/20/25 15:56 MPV 9.7 fL (7.4-10.4) 07/20/25 15:56 Neut % (Auto) 70.9 % 07/20/25 15:56 Lymph % (Auto) 21.6 % 07/20/25 15:56 Tift % (Auto) 6.4 % 07/20/25 15:56 Eos % (Auto) 0.3 % 07/20/25 15:56 Baso % (Auto) 0.2 % 07/20/25 15:56 Neut # (Auto) 6.08 10^3/uL (1.8-7.7) 07/20/25 15:56 Lymph # (Auto) 1.9 10^3/uL (0.8-4.8) 07/20/25 15:56 Tift # (Auto) 0.6 10^3/uL (0.2-0.9) 07/20/25 15:56 Eos # (Auto) 0.0 10^3/uL (0.0-0.8) 07/20/25 15:56 Baso # (Auto) 0.0 10^3/uL (0.0-0.1) 07/20/25 15:56 Nucleated RBC % (auto) 0 % 07/20/25 15:56 Nucleated RBCs # 0.0 /100WBC 07/20/25 15:56 Sodium 136 mmol/L (136-145) 07/20/25 15:56 Potassium 3.8 mmol/L (3.5-5.1) 07/20/25 15:56 Chloride 103 mmol/L (98-107) 07/20/25 15:56 Carbon Dioxide 24 mmol/L (22-29) 07/20/25 15:56 Anion Gap 12.8 (5-19) 07/20/25 15:56 BUN 9 mg/dL (6-20) 07/20/25 15:56 Creatinine 0.5 mg/dL (0.5-0.9) 07/20/25 15:56 GFR Calculation 144.9 mL/min (90-130) H 07/20/25 15:56 Glucose 102 mg/dL (65-115) 07/20/25 15:56 Calculated Osmolality 281 mOsm/kg (285-295) L 07/20/25 15:56 Calcium 8.9 mg/dL (8.5-10.5) 07/20/25 15:56 Total Bilirubin 0.2 mg/dL (0.15-1.2) 07/20/25 15:56 AST 14 U/L (0-32) 07/20/25 15:56 ALT 15 U/L (0-33) 07/20/25 15:56 Alkaline Phosphatase 51 U/L (35-105) 07/20/25 15:56 Total Protein 6.5 g/dL (6.6-8.7) L 07/20/25 15:56 Albumin 3.5 g/dL (3.5-5.2) 07/20/25 15:56 Globulin 3.0 g/dL (1.3-4.6) 07/20/25 15:56 HCG, Qual Positive (Negative) H 07/20/25 15:37 Urine Color Yellow (Yellow) 07/20/25 17:39 Urine Appearance Turbid (CLEAR) A 07/20/25 17:39 Urine pH 7.0 (5-7) 07/20/25 17:39 Ur Specific [place] 1.019 (1.005-1.030) 07/20/25 17:39 Urine Protein Negative (Negative) 07/20/25 17:39 Urine Glucose (UA) Negative (Normal) 07/20/25 17:39 Urine Ketones Negative (Negative) 07/20/25 17:39 Urine Blood Negative (Negative) 07/20/25 17:39 Urine Nitrate Negative (Negative) 07/20/25 17:39 Urine Bilirubin Negative (Negative) 07/20/25 17:39 Urine Urobilinogen 1.0 mg/dL (Negative) 07/20/25 17:39 Ur Leukocyte Esterase 1+ (Negative) A 07/20/25 17:39 Urine RBC 0-2 /hpf (0-2) 07/20/25 17:39 Urine WBC 21-50 /hpf (0-5) H 07/20/25 17:39 Ur Squamous Epith Cells 11-20 /hpf (0-5) H 07/20/25 17:39 Amorphous Sediment Not Reportable 07/20/25 17:39 Urine Bacteria Trace /hpf (NONE) 07/20/25 17:39 Hyaline Casts 1.21 /lpf 07/20/25 17:39 Discharge Plan Discharge Patient Disposition: Home Clinical Impression: Confirmed intrauterine on ultrasound Condition: Stable Prescriptions: No Action (DME) pillow See Rx Instructions .Route .MEDSUPPLY Qty: 1 0RF Rx Instructions: As directed Discharge Orders: Discharge ED (Routine); Ordered 07/20/25 Ordered By: Antonio Dasilva Referrals: Consuelo Aguayo FNP-C [Primary Care Provider, Family Practice] Patient Instructions: Patient Portal & Cristhian Instructions Activity Restrictions/Additional Instructions: Discharge Instructions You have been diagnosed with a healthy in your second trimester. You came to the emergency department with abdominal pain and nausea, and your evaluation did not show any urgent complications. It is important to continue regular care with your medical billing clerk. What to expect next: - Schedule and attend your next appointment with your medical billing clerk as soon as possible. Regular visits are important for your health and your baby?s health. - If you had any special findings on your ultrasound, your medical billing clerk may recommend additional follow-up or testing. When to seek medical attention: Call your doctor or return to the emergency department immediately if you experience: - Heavy vaginal bleeding (soaking more than one pad per hour) - Severe or worsening abdominal pain - Fever over 100.4?F (38?C) - Severe headache, vision changes, or sudden swelling of your hands, feet, or face - Persistent vomiting or inability to keep fluids down - Signs of labor (regular contractions, leaking fluid, or pressure in your pelvis) General care: - Take your vitamins as directed. - Stay hydrated and eat a balanced diet. - Avoid alcohol, tobacco, and any drugs not prescribed by your doctor. - Rest as needed and avoid heavy lifting. Follow-up: - You should be seen by your medical billing clerk within the next few days for ongoing care and monitoring. - If you have any questions or concerns before your appointment, contact your medical billing clerk?s office. Emotional health: It is normal to feel anxious or uncertain after an emergency visit. If you have concerns about your or emotional well-being, talk to your healthcare provider for support. Remember: Most abdominal pain and nausea in are not dangerous, but it is important to watch for warning signs and keep up with your care. Print Language: Albanian Coding Level of Care Code ED Yoke Setter for Karina Best
[2025-07-20 16:06] LABS: Hematocrit 36.8 % (36-47); Hemoglobin 11.70 g/dL (11.27-16.99); Mean Corpuscular HGB Conc 31.8 g/dL (30-55); Mean Corpuscular Hemoglobin 28.0 pg (27-33); Mean Corpuscular Volume 88.0 fl (85-98); Nucleated Red Blood Cells % 0 %; Platelet Count 257 10^3/cmm (157-399); Red Blood Count 4.18 10^6/uL (3.85-5.65); White Blood Count 8.58 10^3/uL (3.29-11.43)
[2025-07-20 16:21] LABS: Alanine Aminotransferase 15 U/L (0-33); Albumin Level 3.5 g/dL (3.5-5.2); Alkaline Phosphatase 51 U/L (35-105); Anion Gap 12.8 (5-19); Aspartate Amino Transferase 14 U/L (0-32); Blood Urea Nitrogen 9 mg/dL (6-20); Calcium 8.9 mg/dL (8.5-10.5); Carbon Dioxide 24 mmol/L (22-29); Chloride 103 mmol/L (98-107); Creatinine Clr Calc Pharmacy 150.0852; Globulin 3.0 g/dL (1.3-4.6); Glucose 102 mg/dL (65-115); Osmolality Calculated 281 mOsm/kg (285-295); Potassium 3.8 mmol/L (3.5-5.1); Sodium 136 mmol/L (136-145); Total Protein 6.5 g/dL (6.6-8.7)
[2025-07-20 16:46] LABS: Glucose Urine UA Negative (Normal); Nitrate Urine Negative (Negative); Specific Gravity, Urine 1.019 (1.005-1.030)
--- NOTE | 2025-07-20 16:46 | USR_ITS ---
PROCEDURE INFORMATION: Exam: US , Limited Exam date and time: 07/20/2025 5:20 PM Age: 30 years old Clinical indication: complicated by abdominal or pelvic pain; Other: Cramping; Gestational age or lmp: 16w4d per ultrasound; ; Additional info: , abd pain LABS AND CLINICAL REPORTS: Last menstrual period start date: 02/13/2025 Gestational age (Established): 22 w 3 d Estimated due date (Established): 11/20/2025 TECHNIQUE: Imaging protocol: Real-time ultrasound of the maternal uterus with image documentation. Exam focused on the clinical indication. COMPARISON: US OB >= 14 weeks fetus [id number] 10/21/2018 2:39 PM FINDINGS: Gestation: Single live intrauterine . heart rate: 138 bpm presentation and position: Breech presentation. Placenta: The placenta is posterior in location without evidence of placenta previa. There is a small 1.6 cm hypoechoic nonvascular focus within the placenta, likely representing a placental tate. BIOMETRY: Biparietal diameter (BPD): 3.44 cm. EGA (BPD) is 16 w 4 d. 3 % percentile Head circumference (HC): 13.07 cm. EGA (HC) is 16 w 5 d. 3 % percentile Abdominal circumference (AC): 10.6 cm. EGA (AC) is 16 w 4 d. 3 % percentile Femur length (FL): 2.15 cm. EGA (FL) is 16 w 3 d. 3 % percentile FL/BPD: 62.5 MATERNAL: Cervix: Cervical length measures 4.1 cm. US/US OB limited [id number] IMPRESSION: 1. Single live intrauterine with a mean sonographic age of 16 weeks 4 days and estimated date of delivery of December 31, 2025. This corresponds to a clinical age of 22 weeks 3 days. measurements correspond to the 3rd percentile. Please correlate with accuracy of clinical dates. 2. Breech presentation.
[2025-07-20 16:51] LABS: Add Urine Microscopic? YES
[2025-07-20 18:01] LABS: HCG Qualitative Urine. Positive (Negative)
[2025-07-20 18:08] LABS: UA Slide Review UA Slide Review Perf
[2025-07-20 18:37] VITALS: BP 155/102; PULSE 65; O2SAT 100
--- NOTE | 2025-07-23 09:36 | DCPLANNER ---
messaged [facility] for er f/u
== END 2025-07-20 18:39 | disposition home or self-care (01) ==
PROVIDERS: Emergency Provider Physician Assistant; PCP Nurse Practitioner Family
DX: Z32.01 Encounter for pregnancy test, result positive (principal); Z3A.16 16 weeks gestation of pregnancy
CPT/HCPCS: 36415; 76815; 80053; 81001; 81025; 85025; 87086; 99284